=== PATIENT | male | born 1950 | race African-American/Black ===

== ENCOUNTER 2020-09-21 09:33 | Inpatient (IN) | payer MEDICARE, OTHER ==
[~2020-09-21] VITALS: Ht 177.8 cm; Wt 89.8 kg
[2020-09-21 12:04] LABS: HEMATOCRIT. 49.1 % (42.0-52.0); HEMOGLOBIN. 15.9 g/dL (14.0-18.0); MEAN CORPUSCULAR HEMOGLOBIN 27.9 pg (28.0-32.0); MEAN CORPUSCULAR VOLUME 86.1 fL (80.0-94.0); MEAN PLATELET VOLUME 9.1 fl (7.4-10.4); PLATELET 218 x1000/uL (130-400); RED CELL DISTRIBUTION WIDTH 14.8 % (11.6-14.6)
[2020-09-21 12:10] LABS: CHLORIDE 106 mEq/L (98-107)
[2020-09-21 12:11] LABS: INR 1.1; PROTHROMBIN TIME 11.4 sec (9.6-11.0)
[2020-09-21 12:54] LABS: PLATELET ESTIMATE NORMAL
[2020-09-21] MEDS ORDERED: SODIUM CHLORIDE 0.9% 1,000 ML IV ONE (13:00)
[2020-09-21] MEDS ORDERED: PIPERACILLIN/TAZOBACTAM 3.375GM/50ML PREMIX IV NR (13:45)
[2020-09-21] MEDS ORDERED: GUAIFENESIN 200MG/10ML SUGAR FREE UDC PO PRN (14:15)
[2020-09-21] MEDS ORDERED: IPRATROPIUM/ALBUTEROL 0.5-3(2.5)MG/3ML NEB NEB PRN (14:15)
[2020-09-21] MEDS ORDERED: ONDANSETRON HCL 4MG/2ML INJ IV PRN (14:15)
[2020-09-21] MEDS ORDERED: ACETAMINOPHEN 650MG SUPP PR PRN (14:15)
[2020-09-21] MEDS ORDERED: DOCUSATE SODIUM 100MG CAPSULE PO PRN (14:15)
[2020-09-21] MEDS ORDERED: LORAZEPAM 2MG/ML CPJ IV PRN (14:15)
[2020-09-21] MEDS ORDERED: HYDRALAZINE 20MG/ML VIAL IV PRN (14:15)
[2020-09-21] MEDS ORDERED: MORPHINE SULFATE 2 MG/ML CPJ (NOT FOR IM USE) IV PRN (14:15)
[2020-09-21] MEDS ORDERED: NITROGLYCERIN 0.4MG TABLET SL SL PRN (14:15)
[2020-09-21] MEDS ORDERED: IOHEXOL-300 100 ML BOTTLE ONE (14:48)
[2020-09-21 15:00] LABS: TOTAL IRON BINDING CAPACITY 319 ug/dL (250-450)
[2020-09-21 15:23] VITALS: BP 145/92
[2020-09-21 15:27] VITALS: BP 150/72
[2020-09-21 15:28] LABS: FOLIC ACID (FOLATE) SERUM 16.2 ng/mL (>5.38)
[2020-09-21] MEDS ORDERED: DONE10TA36 MT (16:13)
[2020-09-21] MEDS ORDERED: ATOR40TA70 MT (16:13)
[2020-09-21] MEDS ORDERED: TOPUD MT (16:13)
[2020-09-21] MEDS ORDERED: APIX2.5T MT (16:13)
[2020-09-21] MEDS: ENOXAPARIN 40MG/0.4ML SYR SUBCUT SCH (17:08)
[2020-09-21] MEDS: DEXT 5%/LACTATED RINGERS 1,000 ML IV SCH (17:09)
[2020-09-21 20:00] VITALS: BP 132/83
[2020-09-22 00:07] VITALS: BP 133/82
[2020-09-22] MEDS ORDERED: PIPERACILLIN/TAZ 3.375G PREMIX 50 ML IV SCH (02:00)
[2020-09-22 04:00] VITALS: BP 147/93
[2020-09-22] MEDS: PIPERACILLIN/TAZOBACTAM 3.375 G in DEXT 5% WATER 100 ML IV SCH ×3 (04:30→20:25)
[2020-09-22 08:00] VITALS: BP 135/81
[2020-09-22 08:26] LABS: HEMATOCRIT. 49.4 % (42.0-52.0); HEMOGLOBIN. 16.4 g/dL (14.0-18.0); MEAN CORPUSCULAR HEMOGLOBIN 28.5 pg (28.0-32.0); MEAN CORPUSCULAR VOLUME 85.7 fL (80.0-94.0); MEAN PLATELET VOLUME 9.7 fl (7.4-10.4); PLATELET 211 x1000/uL (130-400); RED BLOOD CELL COUNT 5.77 mill/uL (4.7-6.1); RED CELL DISTRIBUTION WIDTH 14.9 % (11.6-14.6)
[2020-09-22 08:41] LABS: CHLORIDE 105 mEq/L (98-107)
[2020-09-22 08:47] LABS: PHOSPHORUS 4.3 mg/dL (2.5-4.9)
[2020-09-22 08:49] LABS: CREATINE KINASE 193 IU/L (39-308)
[2020-09-22 08:52] LABS: CREATINE KINASE MB FRACTION 1.2 ng/mL (0.5-3.6)
[2020-09-22] MEDS: LORAZEPAM 2MG/ML CPJ IV PRN (08:55)
[2020-09-22] MEDS: PANTOPRAZOLE SODIUM 40 MG/VIAL IV SCH (08:55)
[2020-09-22] MEDS ORDERED: ONDANSETRON HCL 4MG/2ML INJ IV PRN ×2 (10:30→13:30)
[2020-09-22] MEDS ORDERED: SKIN ADHESIVE 0.7 GM EA TOP ONE (10:35)
[2020-09-22] MEDS ORDERED: BUPIVACAINE HCL 0.5% (5MG/ML) 50ML ONE (10:35)
[2020-09-22] MEDS ORDERED: BACITRACIN 50,000 UNITS/VIAL ONE (10:36)
[2020-09-22] MEDS ORDERED: HYDROMORPHONE HCL/PF 2MG/ML (OR) ONE (12:32)
[2020-09-22] MEDS ORDERED: PROPOFOL 200MG/20ML VIAL IV ONE (12:32)
[2020-09-22] MEDS ORDERED: ROCURONIUM BROMIDE 10MG/ML VIAL 5ML IV ONE (12:32)
[2020-09-22] MEDS ORDERED: DEXAMETHASONE 4MG/ML 1ML VIAL ONE (12:38)
[2020-09-22] MEDS ORDERED: PHENYLEPHRINE HCL 10 MG/ML 1ML (IV VIAL) IV ONE (12:38)
[2020-09-22] MEDS ORDERED: ONDANSETRON HCL 4MG/2ML INJ ONE (12:39)
[2020-09-22] MEDS ORDERED: VECURONIUM BROMIDE 10 MG/VIAL IV ONE (12:39)
[2020-09-22] MEDS ORDERED: CEFAZOLIN SODIUM 1000MG/VIAL ONE (12:39)
[2020-09-22] MEDS ORDERED: GLYCOPYRROLATE 0.2 MG/ML 2ML VIAL ONE (12:40)
[2020-09-22] MEDS ORDERED: NEOSTIGMINE METHYLSULFATE 1MG/ML 10 ML VIAL ONE (12:40)
[2020-09-22] MEDS ORDERED: HYDROMORPHONE HCL/PF 2MG/ML CPJ IV PRN (13:30)
[2020-09-22] MEDS: DEXT 5%/LACTATED RINGERS 1,000 ML IV SCH (14:15)
[2020-09-22 14:17] LABS: PLATELET ESTIMATE NORMAL
[2020-09-22] MEDS: ENOXAPARIN 40MG/0.4ML SYR SUBCUT SCH (14:53)
[2020-09-22 15:44] VITALS: BP 136/70
[2020-09-22 16:00] VITALS: BP 131/79
[2020-09-22] MEDS: DEXT 5%/0.45% NACL KCL 20MEQ/L 1,000 ML IV SCH ×2 (16:38→21:55)
[2020-09-22] MEDS: MORPHINE SULFATE 2 MG/ML CPJ (NOT FOR IM USE) IV PRN (17:29)
[2020-09-22] MEDS ORDERED: METOPROLOL TARTRATE 5MG/5ML VIAL IV PRN (18:45)
[2020-09-22] MEDS ORDERED: SODIUM CHLORIDE 0.45% 250 ML IV NR (18:45)
[2020-09-22 20:00] VITALS: BP 115/69
[2020-09-23] MEDS: PIPERACILLIN/TAZOBACTAM 3.375 G in DEXT 5% WATER 100 ML IV SCH ×3 (03:14→21:35)
[2020-09-23 05:15] VITALS: BP 126/68
[2020-09-23 09:10] VITALS: BP 120/65
[2020-09-23 09:10] LABS: CHLORIDE 111 mEq/L (98-107)
[2020-09-23 09:15] VITALS: BP 120/65
[2020-09-23] MEDS: PANTOPRAZOLE SODIUM 40 MG/VIAL IV SCH (09:37)
[2020-09-23] MEDS: ACETAMINOPHEN 650MG SUPP PR PRN ×2 (09:37→13:59)
[2020-09-23] MEDS: DEXT 5%/0.45% NACL KCL 20MEQ/L 1,000 ML IV SCH ×2 (09:38→18:28)
[2020-09-23 12:00] VITALS: BP 114/66
[2020-09-23] MEDS: ENOXAPARIN 40MG/0.4ML SYR SUBCUT SCH (15:51)
[2020-09-23 16:00] VITALS: BP 106/60
[2020-09-23 20:00] VITALS: BP 105/46
[2020-09-24] VITALS: BP 116/59
[2020-09-24] MEDS: DEXT 5%/0.45% NACL KCL 20MEQ/L 1,000 ML IV SCH ×2 (01:58→14:34)
[2020-09-24 04:00] VITALS: BP 103/55
[2020-09-24] MEDS: PIPERACILLIN/TAZOBACTAM 3.375 G in DEXT 5% WATER 100 ML IV SCH ×3 (04:25→20:27)
[2020-09-24 08:00] VITALS: BP 110/57
[2020-09-24] MEDS: FAMOTIDINE 20MG/2ML VIAL IV SCH ×2 (09:30→20:30)
[2020-09-24 12:00] VITALS: BP 123/57
[2020-09-24] MEDS: ENOXAPARIN 40MG/0.4ML SYR SUBCUT SCH (14:34)
[2020-09-24 16:00] VITALS: BP 122/71
[2020-09-24] MEDS: MORPHINE SULFATE 2 MG/ML CPJ (NOT FOR IM USE) IV PRN (18:40)
[2020-09-24 20:00] VITALS: BP 140/74
[2020-09-24] MEDS: FINASTERIDE 5MG TABLET PO SCH (20:27)
[2020-09-24] MEDS: TAMSULOSIN HCL 0.4MG SR CAPSULE PO SCH (20:30)
[2020-09-24] MEDS: LORAZEPAM 2MG/ML CPJ IV PRN (20:50)
[2020-09-25] VITALS: BP 118/35
[2020-09-25] MEDS: DEXT 5%/0.45% NACL KCL 20MEQ/L 1,000 ML IV SCH ×2 (04:32→11:15)
[2020-09-25] MEDS: PIPERACILLIN/TAZOBACTAM 3.375 G in DEXT 5% WATER 100 ML IV SCH ×3 (04:32→20:37)
[2020-09-25 08:00] VITALS: BP 130/64
[2020-09-25] MEDS: FAMOTIDINE 20MG/2ML VIAL IV SCH ×2 (09:00→20:38)
[2020-09-25 12:30] VITALS: BP 133/64
[2020-09-25 16:00] VITALS: BP 107/107
[2020-09-25] MEDS: ENOXAPARIN 40MG/0.4ML SYR SUBCUT SCH (16:15)
[2020-09-25 20:00] VITALS: BP 129/69
[2020-09-25] MEDS: TAMSULOSIN HCL 0.4MG SR CAPSULE PO SCH (20:38)
[2020-09-25] MEDS: FINASTERIDE 5MG TABLET PO SCH (20:40)
[2020-09-26] VITALS: BP 133/72
[2020-09-26] MEDS: DEXT 5%/0.45% NACL KCL 20MEQ/L 1,000 ML IV SCH ×3 (01:33→16:42)
[2020-09-26 04:00] VITALS: BP 125/67
[2020-09-26] MEDS: PIPERACILLIN/TAZOBACTAM 3.375 G in DEXT 5% WATER 100 ML IV SCH ×3 (04:27→20:06)
[2020-09-26 08:00] VITALS: BP 134/74
[2020-09-26] MEDS: FAMOTIDINE 20MG/2ML VIAL IV SCH ×2 (09:33→20:06)
[2020-09-26 12:00] VITALS: BP 135/74
[2020-09-26 16:00] VITALS: BP 152/74
[2020-09-26] MEDS: ENOXAPARIN 40MG/0.4ML SYR SUBCUT SCH (16:28)
[2020-09-26 20:00] VITALS: BP 136/68
[2020-09-26] MEDS: TAMSULOSIN HCL 0.4MG SR CAPSULE PO SCH (20:06)
[2020-09-26] MEDS: FINASTERIDE 5MG TABLET PO SCH (20:06)
[2020-09-27] VITALS: BP 152/72
[2020-09-27 04:00] VITALS: BP 128/55
[2020-09-27] MEDS: PIPERACILLIN/TAZOBACTAM 3.375 G in DEXT 5% WATER 100 ML IV SCH (04:07)
[2020-09-27] MEDS: DEXT 5%/0.45% NACL KCL 20MEQ/L 1,000 ML IV SCH ×3 (04:08→21:30)
[2020-09-27 08:00] VITALS: BP 118/69
[2020-09-27] MEDS: FAMOTIDINE 20MG/2ML VIAL IV SCH ×2 (08:23→21:26)
[2020-09-27 12:00] VITALS: BP 146/80
[2020-09-27] MEDS: ENOXAPARIN 40MG/0.4ML SYR SUBCUT SCH (14:01)
[2020-09-27 16:00] VITALS: BP 143/72
[2020-09-27 20:00] VITALS: BP 143/77
[2020-09-27] MEDS: TAMSULOSIN HCL 0.4MG SR CAPSULE PO SCH (21:00)
[2020-09-27] MEDS: FINASTERIDE 5MG TABLET PO SCH (21:00)
[2020-09-28] VITALS: BP 148/86
[2020-09-28 08:00] VITALS: BP 133/62
[2020-09-28] MEDS: FAMOTIDINE 20MG/2ML VIAL IV SCH ×2 (09:49→22:31)
[2020-09-28] MEDS: DEXT 5%/0.45% NACL KCL 20MEQ/L 1,000 ML IV SCH ×2 (09:49→17:44)
[2020-09-28] MEDS ORDERED: MORPHINE SULFATE 2 MG/ML CPJ (NOT FOR IM USE) IV PRN (10:30)
[2020-09-28] MEDS ORDERED: TRAMADOL 50MG TABLET PO PRN (10:30)
[2020-09-28 12:00] VITALS: BP 119/65
[2020-09-28] MEDS: ENOXAPARIN 40MG/0.4ML SYR SUBCUT SCH (15:06)
[2020-09-28 16:00] VITALS: BP 124/73
[2020-09-28 20:00] VITALS: BP 123/74
[2020-09-28] MEDS: TAMSULOSIN HCL 0.4MG SR CAPSULE PO SCH (22:31)
[2020-09-28] MEDS: FINASTERIDE 5MG TABLET PO SCH (22:31)
[2020-09-29] VITALS: BP 135/69
[2020-09-29 04:00] VITALS: BP 134/73
[2020-09-29] MEDS: DEXT 5%/0.45% NACL KCL 20MEQ/L 1,000 ML IV SCH ×2 (05:48→16:55)
[2020-09-29] MEDS: FAMOTIDINE 20MG/2ML VIAL IV SCH ×2 (10:05→22:38)
[2020-09-29 11:07] LABS: BASOPHILS % 0.3 % (0.0-2.0); EOSINOPHILS % 1.2 % (0.0-5.0); HEMATOCRIT. 37.4 % (42.0-52.0); HEMOGLOBIN. 12.4 g/dL (14.0-18.0); LYMPHOCYTES % 15.3 % (20.0-50.0); MEAN CORPUSCULAR HEMOGLOBIN 28.3 pg (28.0-32.0); MEAN CORPUSCULAR VOLUME 85.4 fL (80.0-94.0); MEAN PLATELET VOLUME 9.1 fl (7.4-10.4); MONOCYTES % 8.6 % (2.0-8.0); NEUTROPHILS % 74.6 % (40.0-76.0); PLATELET 207 x1000/uL (130-400); RED BLOOD CELL COUNT 4.38 mill/uL (4.7-6.1); RED CELL DISTRIBUTION WIDTH 14.4 % (11.6-14.6)
[2020-09-29 12:00] VITALS: BP 125/70
[2020-09-29 12:26] LABS: CHLORIDE 108 mEq/L (98-107)
[2020-09-29 16:00] VITALS: BP 117/93
[2020-09-29] MEDS: ENOXAPARIN 40MG/0.4ML SYR SUBCUT SCH (16:52)
[2020-09-29] MEDS: CYANOCOBALAMIN 1000MCG/ML VIAL IM SCH (17:13)
[2020-09-29 20:00] VITALS: BP 127/73
[2020-09-29] MEDS: FINASTERIDE 5MG TABLET PO SCH (22:38)
[2020-09-29] MEDS: TAMSULOSIN HCL 0.4MG SR CAPSULE PO SCH (22:38)
[2020-09-30] VITALS: BP 133/73
[2020-09-30 04:00] VITALS: BP 133/78
[2020-09-30] MEDS: DEXT 5%/0.45% NACL KCL 20MEQ/L 1,000 ML IV SCH ×3 (04:29→20:30)
[2020-09-30 08:00] VITALS: BP 143/80
[2020-09-30] MEDS: FAMOTIDINE 20MG/2ML VIAL IV SCH ×2 (08:55→21:00)
[2020-09-30] MEDS: CYANOCOBALAMIN 1000MCG/ML VIAL IM SCH (08:59)
[2020-09-30 12:00] VITALS: BP 135/77
[2020-09-30] MEDS: ENOXAPARIN 40MG/0.4ML SYR SUBCUT SCH (14:26)
[2020-09-30] MEDS: LACTULOSE 20G/30ML UDC PO SCH ×2 (14:26→21:43)
[2020-09-30 16:00] VITALS: BP 129/70
[2020-09-30 20:00] VITALS: BP 145/83
[2020-09-30] MEDS: TAMSULOSIN HCL 0.4MG SR CAPSULE PO SCH (21:43)
[2020-09-30] MEDS: FINASTERIDE 5MG TABLET PO SCH (21:43)
[2020-10-01] VITALS: BP 139/68
[2020-10-01 04:00] VITALS: BP 138/81
[2020-10-01] MEDS: LACTULOSE 20G/30ML UDC PO SCH (05:31)
[2020-10-01] MEDS: DEXT 5%/0.45% NACL KCL 20MEQ/L 1,000 ML IV SCH ×2 (06:11→16:30)
[2020-10-01 08:00] VITALS: BP 131/72
[2020-10-01] MEDS: CYANOCOBALAMIN 1000MCG/ML VIAL IM SCH (08:51)
[2020-10-01] MEDS: FAMOTIDINE 20MG/2ML VIAL IV SCH ×2 (09:09→21:55)
[2020-10-01 12:00] VITALS: BP 127/85
[2020-10-01 16:00] VITALS: BP 135/70
[2020-10-01] MEDS: ENOXAPARIN 40MG/0.4ML SYR SUBCUT SCH (17:38)
[2020-10-01 20:00] VITALS: BP 136/76
[2020-10-01] MEDS: TAMSULOSIN HCL 0.4MG SR CAPSULE PO SCH (21:55)
[2020-10-01] MEDS: FINASTERIDE 5MG TABLET PO SCH (21:55)
[2020-10-02] VITALS: BP 123/73
[2020-10-02] MEDS: DEXT 5%/0.45% NACL KCL 20MEQ/L 1,000 ML IV SCH ×2 (02:25→14:34)
[2020-10-02 04:00] VITALS: BP 137/75
[2020-10-02 07:10] LABS: T4 FREE 1.62 ng/dL (0.76-1.46)
[2020-10-02 07:53] LABS: VITAMIN B12 SERUM > 2000.0 pg/mL (211-911)
[2020-10-02] MEDS: FAMOTIDINE 20MG/2ML VIAL IV SCH ×2 (09:12→21:30)
[2020-10-02] MEDS: CYANOCOBALAMIN 1000MCG/ML VIAL IM SCH (09:12)
[2020-10-02] MEDS: ENOXAPARIN 40MG/0.4ML SYR SUBCUT SCH (17:22)
[2020-10-02 20:00] VITALS: BP 151/84
[2020-10-02] MEDS: TAMSULOSIN HCL 0.4MG SR CAPSULE PO SCH (21:30)
[2020-10-02] MEDS: FINASTERIDE 5MG TABLET PO SCH (21:30)
[2020-10-03] VITALS: BP 110/65
[2020-10-03] MEDS: DEXT 5%/0.45% NACL KCL 20MEQ/L 1,000 ML IV SCH ×3 (03:21→18:30)
[2020-10-03 04:00] VITALS: BP 153/77
[2020-10-03] MEDS: FAMOTIDINE 20MG/2ML VIAL IV SCH ×2 (09:21→21:00)
[2020-10-03] MEDS: CYANOCOBALAMIN 1000MCG/ML VIAL IM SCH (09:21)
[2020-10-03] MEDS: ENOXAPARIN 40MG/0.4ML SYR SUBCUT SCH (16:16)
[2020-10-03 20:00] VITALS: BP 136/76
[2020-10-03] MEDS: FINASTERIDE 5MG TABLET PO SCH (20:55)
[2020-10-03] MEDS: TAMSULOSIN HCL 0.4MG SR CAPSULE PO SCH (20:55)
[2020-10-04] VITALS: BP 145/72
[2020-10-04] MEDS: DEXT 5%/0.45% NACL KCL 20MEQ/L 1,000 ML IV SCH ×2 (03:11→17:20)
[2020-10-04 04:00] VITALS: BP 150/74
[2020-10-04 08:00] VITALS: BP 139/76
[2020-10-04] MEDS: CYANOCOBALAMIN 1000MCG/ML VIAL IM SCH ×2 (09:00→09:57)
[2020-10-04] MEDS: FAMOTIDINE 20MG/2ML VIAL IV SCH ×3 (09:00→20:06)
[2020-10-04 12:00] VITALS: BP 130/80
[2020-10-04 16:00] VITALS: BP 154/71
[2020-10-04] MEDS: ENOXAPARIN 40MG/0.4ML SYR SUBCUT SCH (17:22)
[2020-10-04 20:00] VITALS: BP 119/80
[2020-10-04] MEDS: FINASTERIDE 5MG TABLET PO SCH (20:06)
[2020-10-04] MEDS: TAMSULOSIN HCL 0.4MG SR CAPSULE PO SCH (20:07)
[2020-10-05] VITALS: BP 119/80
[2020-10-05] MEDS: DEXT 5%/0.45% NACL KCL 20MEQ/L 1,000 ML IV SCH ×3 (01:31→20:04)
[2020-10-05 04:00] VITALS: BP 137/75
[2020-10-05] MEDS: CYANOCOBALAMIN 1000MCG/ML VIAL IM SCH (09:26)
[2020-10-05] MEDS: FAMOTIDINE 20MG/2ML VIAL IV SCH ×2 (09:26→20:04)
[2020-10-05 10:30] VITALS: BP 125/69
[2020-10-05 12:00] VITALS: BP 126/66
[2020-10-05] MEDS: ENOXAPARIN 40MG/0.4ML SYR SUBCUT SCH (15:26)
[2020-10-05 16:00] VITALS: BP 133/82
[2020-10-05 20:00] VITALS: BP 137/73
[2020-10-05] MEDS: FINASTERIDE 5MG TABLET PO SCH (20:03)
[2020-10-05] MEDS: TAMSULOSIN HCL 0.4MG SR CAPSULE PO SCH (20:04)
[2020-10-06] VITALS: BP 128/70
[2020-10-06 04:00] VITALS: BP 127/71
[2020-10-06] MEDS: DEXT 5%/0.45% NACL KCL 20MEQ/L 1,000 ML IV SCH ×2 (06:31→17:10)
[2020-10-06 08:00] VITALS: BP 129/62
[2020-10-06] MEDS: FAMOTIDINE 20MG/2ML VIAL IV SCH ×2 (08:25→20:35)
[2020-10-06 12:00] VITALS: BP 120/62
[2020-10-06] MEDS: ENOXAPARIN 40MG/0.4ML SYR SUBCUT SCH (14:37)
[2020-10-06 16:00] VITALS: BP 142/61
[2020-10-06 20:00] VITALS: BP_SYST 122; BP_SYST 141; BP_DIAS 71; BP_DIAS 74
[2020-10-06] MEDS: FINASTERIDE 5MG TABLET PO SCH (20:35)
[2020-10-06] MEDS: TAMSULOSIN HCL 0.4MG SR CAPSULE PO SCH (20:37)
[2020-10-07] VITALS: BP 122/71
[2020-10-07] MEDS: DEXT 5%/0.45% NACL KCL 20MEQ/L 1,000 ML IV SCH ×3 (01:12→21:59)
[2020-10-07 04:00] VITALS: BP 120/66
[2020-10-07 06:33] LABS: BASOPHILS % 0.5 % (0.0-2.0); EOSINOPHILS % 1.6 % (0.0-5.0); HEMATOCRIT. 32.4 % (42.0-52.0); HEMOGLOBIN. 11.1 g/dL (14.0-18.0); LYMPHOCYTES % 18.9 % (20.0-50.0); MEAN CORPUSCULAR HEMOGLOBIN 29.2 pg (28.0-32.0); MEAN PLATELET VOLUME 8.7 fl (7.4-10.4); MONOCYTES % 9.4 % (2.0-8.0); NEUTROPHILS % 69.6 % (40.0-76.0); PLATELET 297 x1000/uL (130-400); RED BLOOD CELL COUNT 3.81 mill/uL (4.7-6.1); RED CELL DISTRIBUTION WIDTH 14.6 % (11.6-14.6)
[2020-10-07 06:41] LABS: CHLORIDE 108 mEq/L (98-107)
[2020-10-07 08:00] VITALS: BP 120/65
[2020-10-07] MEDS: FAMOTIDINE 20MG/2ML VIAL IV SCH ×2 (08:03→20:56)
[2020-10-07 12:00] VITALS: BP 120/65
[2020-10-07] MEDS: ENOXAPARIN 40MG/0.4ML SYR SUBCUT SCH (14:40)
[2020-10-07 16:00] VITALS: BP 115/74
[2020-10-07 20:00] VITALS: BP 129/71
[2020-10-07] MEDS: FINASTERIDE 5MG TABLET PO SCH (20:56)
[2020-10-07] MEDS: TAMSULOSIN HCL 0.4MG SR CAPSULE PO SCH (20:56)
[2020-10-08] VITALS: BP 134/76
[2020-10-08 04:00] VITALS: BP 136/72
[2020-10-08 08:00] VITALS: BP 132/76
[2020-10-08 08:16] LABS: TOTAL IRON BINDING CAPACITY 184 ug/dL (250-450)
[2020-10-08] MEDS ORDERED: LIDOCAINE HCL 1% 20ML VIAL (Pyxis) INJ ONE (08:29)
[2020-10-08 09:41] LABS: VITAMIN B12 SERUM > 2000.0 pg/mL (211-911)
[2020-10-08] MEDS: FAMOTIDINE 20MG/2ML VIAL IV SCH ×2 (10:05→20:34)
[2020-10-08] MEDS: DEXT 5%/0.45% NACL KCL 20MEQ/L 1,000 ML IV SCH ×2 (10:06→18:16)
[2020-10-08 11:48] LABS: FERRITIN 277 ng/mL (22-322)
[2020-10-08] MEDS: ENOXAPARIN 40MG/0.4ML SYR SUBCUT SCH (15:52)
[2020-10-08 20:00] VITALS: BP 126/60
[2020-10-08] MEDS: FINASTERIDE 5MG TABLET PO SCH (20:32)
[2020-10-08] MEDS: TAMSULOSIN HCL 0.4MG SR CAPSULE PO SCH (20:33)
[2020-10-09] VITALS: BP 105/63
[2020-10-09] MEDS: DEXT 5%/0.45% NACL KCL 20MEQ/L 1,000 ML IV SCH ×2 (02:40→16:49)
[2020-10-09 04:00] VITALS: BP 134/73
[2020-10-09 08:00] VITALS: BP 136/76
[2020-10-09] MEDS: FAMOTIDINE 20MG/2ML VIAL IV SCH ×2 (08:25→21:05)
[2020-10-09] MEDS: FERROUS SULFATE 300MG/5ML UDC PO SCH (16:48)
[2020-10-09] MEDS: ENOXAPARIN 40MG/0.4ML SYR SUBCUT SCH (16:49)
[2020-10-09 20:00] VITALS: BP 130/76
[2020-10-09] MEDS: TAMSULOSIN HCL 0.4MG SR CAPSULE PO SCH (20:58)
[2020-10-09] MEDS: FINASTERIDE 5MG TABLET PO SCH (20:58)
[2020-10-10] VITALS: BP 131/74
[2020-10-10] MEDS: DEXT 5%/0.45% NACL KCL 20MEQ/L 1,000 ML IV SCH ×2 (01:48→11:34)
[2020-10-10 04:00] VITALS: BP 132/71
[2020-10-10] MEDS: FERROUS SULFATE 300MG/5ML UDC PO SCH ×3 (09:56→18:19)
[2020-10-10] MEDS: FAMOTIDINE 20MG/2ML VIAL IV SCH ×2 (09:56→21:18)
[2020-10-10 10:51] LABS: CHLORIDE 109 mEq/L (98-107)
[2020-10-10 10:57] LABS: PHOSPHORUS 3.3 mg/dL (2.5-4.9)
[2020-10-10 12:00] VITALS: BP 123/71
[2020-10-10 15:20] VITALS: BP 123/71
[2020-10-10 16:00] VITALS: BP 137/77
[2020-10-10] MEDS: BLOOD SUGAR DIAGNOSTIC STRIP TEST SCH (18:02)
[2020-10-10] MEDS: ENOXAPARIN 40MG/0.4ML SYR SUBCUT SCH (18:02)
[2020-10-10 20:00] VITALS: BP 144/83
[2020-10-10] MEDS: TAMSULOSIN HCL 0.4MG SR CAPSULE PO SCH (21:18)
[2020-10-10] MEDS: FAT EMULSIONS 500 ML IV SCH (21:18)
[2020-10-10] MEDS: FINASTERIDE 5MG TABLET PO SCH (21:18)
[2020-10-10] MEDS: TOTAL PARENTERAL NUTRITION 2,500 ML IV SCH (21:19)
[2020-10-11] VITALS (7 sets, daily range): BP systolic 125–160; BP diastolic 68–88
[2020-10-11] MEDS: BLOOD SUGAR DIAGNOSTIC STRIP TEST SCH ×4 (00:46→18:03)
[2020-10-11 07:20] LABS: CHLORIDE 108 mEq/L (98-107)
[2020-10-11 07:29] LABS: PHOSPHORUS 2.8 mg/dL (2.5-4.9)
[2020-10-11] MEDS: FAMOTIDINE 20MG/2ML VIAL IV SCH ×2 (09:52→21:21)
[2020-10-11] MEDS: FERROUS SULFATE 300MG/5ML UDC PO SCH ×3 (09:52→18:44)
[2020-10-11] MEDS: ENOXAPARIN 40MG/0.4ML SYR SUBCUT SCH (18:44)
[2020-10-11] MEDS: FINASTERIDE 5MG TABLET PO SCH (21:21)
[2020-10-11] MEDS: TAMSULOSIN HCL 0.4MG SR CAPSULE PO SCH (21:21)
[2020-10-11] MEDS: TOTAL PARENTERAL NUTRITION 2,500 ML IV SCH (22:04)
[2020-10-12] VITALS: BP 118/66
[2020-10-12] MEDS: BLOOD SUGAR DIAGNOSTIC STRIP TEST SCH ×4 (00:09→18:00)
[2020-10-12 04:00] VITALS: BP 119/77
[2020-10-12 07:42] LABS: CHLORIDE 106 mEq/L (98-107)
[2020-10-12 07:47] LABS: PHOSPHORUS 2.4 mg/dL (2.5-4.9)
[2020-10-12 08:00] VITALS: BP 117/73
[2020-10-12] MEDS: FERROUS SULFATE 300MG/5ML UDC PO SCH ×3 (09:18→16:50)
[2020-10-12] MEDS: FAMOTIDINE 20MG/2ML VIAL IV SCH ×2 (09:18→21:05)
[2020-10-12 12:00] VITALS: BP 112/68
[2020-10-12 16:00] VITALS: BP 110/72
[2020-10-12] MEDS: ENOXAPARIN 40MG/0.4ML SYR SUBCUT SCH (16:50)
[2020-10-12 20:00] VITALS: BP 136/63
[2020-10-12] MEDS: TAMSULOSIN HCL 0.4MG SR CAPSULE PO SCH (21:04)
[2020-10-12] MEDS: FINASTERIDE 5MG TABLET PO SCH (21:04)
[2020-10-12] MEDS: TOTAL PARENTERAL NUTRITION 2,500 ML IV SCH (21:06)
[2020-10-13] VITALS: BP 128/60
[2020-10-13 04:00] VITALS: BP 126/72
[2020-10-13] MEDS: BLOOD SUGAR DIAGNOSTIC STRIP TEST SCH ×4 (06:00→18:03)
[2020-10-13] MEDS: FERROUS SULFATE 300MG/5ML UDC PO SCH ×3 (07:40→17:57)
[2020-10-13 08:00] VITALS: BP 113/77
[2020-10-13] MEDS: FAMOTIDINE 20MG/2ML VIAL IV SCH ×2 (08:50→21:57)
[2020-10-13] MEDS ORDERED: DIATR MEGLU/DIATRIZOATE SOLN 30ML ONE (10:47)
[2020-10-13 12:00] VITALS: BP 125/71
[2020-10-13 13:22] LABS: BASOPHILS % 0.6 % (0.0-2.0); HEMATOCRIT. 39.9 % (42.0-52.0); HEMOGLOBIN. 12.9 g/dL (14.0-18.0); LYMPHOCYTES % 21.1 % (20.0-50.0); MEAN CORPUSCULAR HEMOGLOBIN 27.6 pg (28.0-32.0); MEAN CORPUSCULAR VOLUME 85.5 fL (80.0-94.0); MONOCYTES % 11.9 % (2.0-8.0); NEUTROPHILS % 64.4 % (40.0-76.0); PLATELET 263 x1000/uL (130-400); RED BLOOD CELL COUNT 4.67 mill/uL (4.7-6.1); RED CELL DISTRIBUTION WIDTH 14.7 % (11.6-14.6)
[2020-10-13 13:40] LABS: CHLORIDE 107 mEq/L (98-107)
[2020-10-13 16:00] VITALS: BP 128/71
[2020-10-13] MEDS: ENOXAPARIN 40MG/0.4ML SYR SUBCUT SCH (16:21)
[2020-10-13 20:00] VITALS: BP 139/77
[2020-10-13] MEDS: TOTAL PARENTERAL NUTRITION 2,500 ML IV SCH (21:52)
[2020-10-13] MEDS: FAT EMULSIONS 500 ML IV SCH (21:52)
[2020-10-13] MEDS: TAMSULOSIN HCL 0.4MG SR CAPSULE PO SCH (21:54)
[2020-10-13] MEDS: FINASTERIDE 5MG TABLET PO SCH (22:01)
[2020-10-14] VITALS: BP 135/66
[2020-10-14] MEDS: BLOOD SUGAR DIAGNOSTIC STRIP TEST SCH ×3 (00:03→12:00)
[2020-10-14 04:00] VITALS: BP 132/76
[2020-10-14 07:54] LABS: CHLORIDE 103 mEq/L (98-107)
[2020-10-14 07:59] LABS: PHOSPHORUS 1.6 mg/dL (2.5-4.9)
[2020-10-14] MEDS: FERROUS SULFATE 300MG/5ML UDC PO SCH ×3 (08:49→18:15)
[2020-10-14] MEDS: FAMOTIDINE 20MG/2ML VIAL IV SCH ×2 (08:49→21:54)
[2020-10-14] MEDS ORDERED: DIATR MEGLU/DIATRIZOATE SOLN 120ML ONE (09:07)
[2020-10-14 12:00] VITALS: BP 154/58
[2020-10-14] MEDS ORDERED: SODIUM PHOS,M-BASIC-D-BASIC 30 MM in SODIUM CHLORIDE 0.9% 500 ML IV NR (14:00)
[2020-10-14] MEDS ORDERED: SODIUM PHOS,M-BASIC-D-BASIC 30 MM in DEXT 5% WATER 500 ML IV NR (14:00)
[2020-10-14] MEDS: ENOXAPARIN 40MG/0.4ML SYR SUBCUT SCH (15:06)
[2020-10-14 16:00] VITALS: BP_SYST 123; BP_SYST 84; BP_DIAS 56; BP_DIAS 57
[2020-10-14 20:00] VITALS: BP 130/79
[2020-10-14] MEDS: TOTAL PARENTERAL NUTRITION 2,500 ML IV SCH (21:53)
[2020-10-14] MEDS: TAMSULOSIN HCL 0.4MG SR CAPSULE PO SCH (21:53)
[2020-10-14] MEDS: FINASTERIDE 5MG TABLET PO SCH (21:53)
[2020-10-15] VITALS: BP 126/78
[2020-10-15 04:00] VITALS: BP 144/76
[2020-10-15 07:20] LABS: CHLORIDE 111 mEq/L (98-107)
[2020-10-15] MEDS: FERROUS SULFATE 300MG/5ML UDC PO SCH ×4 (07:40→17:40)
[2020-10-15 07:42] LABS: PHOSPHORUS 2.4 mg/dL (2.5-4.9)
[2020-10-15 08:00] VITALS: BP 146/74
[2020-10-15] MEDS ORDERED: LIDOCAINE HCL 1% 20ML VIAL (Pyxis) INJ ONE (08:54)
[2020-10-15] MEDS: BLOOD SUGAR DIAGNOSTIC STRIP TEST SCH (09:00)
[2020-10-15] MEDS: FAMOTIDINE 20MG/2ML VIAL IV SCH ×2 (10:13→20:42)
[2020-10-15 12:00] VITALS: BP 129/69
[2020-10-15] MEDS: ENOXAPARIN 40MG/0.4ML SYR SUBCUT SCH (15:31)
[2020-10-15 16:00] VITALS: BP 124/76
[2020-10-15 20:00] VITALS: BP 126/69
[2020-10-15] MEDS: TOTAL PARENTERAL NUTRITION 1,700 ML IV SCH (20:41)
[2020-10-15] MEDS: TAMSULOSIN HCL 0.4MG SR CAPSULE PO SCH (20:42)
[2020-10-15] MEDS: FINASTERIDE 5MG TABLET PO SCH (20:42)
[2020-10-16] VITALS: BP 130/80
[2020-10-16 04:00] VITALS: BP 128/76
[2020-10-16] MEDS: FERROUS SULFATE 300MG/5ML UDC PO SCH ×3 (08:10→18:08)
[2020-10-16 08:15] VITALS: BP 131/73
[2020-10-16] MEDS: FAMOTIDINE 20MG/2ML VIAL IV SCH ×2 (09:37→21:08)
[2020-10-16] MEDS: BLOOD SUGAR DIAGNOSTIC STRIP TEST SCH (09:37)
[2020-10-16 12:00] VITALS: BP 145/66
[2020-10-16] MEDS: ENOXAPARIN 40MG/0.4ML SYR SUBCUT SCH (15:06)
[2020-10-16 16:27] VITALS: BP 137/86
[2020-10-16 20:00] VITALS: BP 121/56
[2020-10-16] MEDS: TOTAL PARENTERAL NUTRITION 1,700 ML IV SCH (21:09)
[2020-10-16] MEDS: FINASTERIDE 5MG TABLET PO SCH (21:10)
[2020-10-16] MEDS: TAMSULOSIN HCL 0.4MG SR CAPSULE PO SCH (21:10)
[2020-10-17] VITALS: BP 138/77
[2020-10-17 04:00] VITALS: BP 147/69
[2020-10-17] MEDS: FERROUS SULFATE 300MG/5ML UDC PO SCH ×3 (06:40→17:22)
[2020-10-17 06:58] LABS: CHLORIDE 108 mEq/L (98-107)
[2020-10-17 07:07] LABS: PHOSPHORUS 2.5 mg/dL (2.5-4.9)
[2020-10-17 08:00] VITALS: BP 131/64
[2020-10-17] MEDS: BLOOD SUGAR DIAGNOSTIC STRIP TEST SCH (09:00)
[2020-10-17] MEDS: FAMOTIDINE 20MG/2ML VIAL IV SCH ×2 (10:21→20:22)
[2020-10-17 12:15] VITALS: BP 134/71
[2020-10-17] MEDS: ENOXAPARIN 40MG/0.4ML SYR SUBCUT SCH (15:37)
[2020-10-17 16:00] VITALS: BP 118/61
[2020-10-17 20:00] VITALS: BP 129/80
[2020-10-17] MEDS: FAT EMULSIONS 500 ML IV SCH (20:00)
[2020-10-17] MEDS: TOTAL PARENTERAL NUTRITION 1,700 ML IV SCH (20:19)
[2020-10-17] MEDS: FINASTERIDE 5MG TABLET PO SCH (20:21)
[2020-10-17] MEDS: TAMSULOSIN HCL 0.4MG SR CAPSULE PO SCH (20:21)
[2020-10-18] VITALS: BP 135/67
[2020-10-18 04:00] VITALS: BP 128/71
[2020-10-18] MEDS: FERROUS SULFATE 300MG/5ML UDC PO SCH ×3 (07:40→19:18)
[2020-10-18 08:00] VITALS: BP 113/62
[2020-10-18] MEDS: FAMOTIDINE 20MG/2ML VIAL IV SCH ×2 (08:33→21:15)
[2020-10-18] MEDS: BLOOD SUGAR DIAGNOSTIC STRIP TEST SCH ×2 (08:34→21:36)
[2020-10-18] MEDS: METOCLOPRAMIDE HCL 10MG/2ML VIAL IV SCH ×2 (11:43→19:18)
[2020-10-18 12:00] VITALS: BP 119/71
[2020-10-18] MEDS: ENOXAPARIN 40MG/0.4ML SYR SUBCUT SCH (15:00)
[2020-10-18 16:13] VITALS: BP 128/82
[2020-10-18 20:14] VITALS: BP 146/74
[2020-10-18] MEDS: TAMSULOSIN HCL 0.4MG SR CAPSULE PO SCH (21:15)
[2020-10-18] MEDS: FINASTERIDE 5MG TABLET PO SCH (21:16)
[2020-10-18] MEDS: TOTAL PARENTERAL NUTRITION 1,700 ML IV SCH (21:16)
[2020-10-19 00:11] VITALS: BP 148/86
[2020-10-19] MEDS: METOCLOPRAMIDE HCL 10MG/2ML VIAL IV SCH ×4 (02:19→18:40)
[2020-10-19 04:00] VITALS: BP 140/83
[2020-10-19 08:00] VITALS: BP 125/72
[2020-10-19] MEDS: FAMOTIDINE 20MG/2ML VIAL IV SCH ×2 (11:02→20:19)
[2020-10-19] MEDS: FERROUS SULFATE 300MG/5ML UDC PO SCH ×3 (11:02→18:40)
[2020-10-19 12:00] VITALS: BP 136/86
[2020-10-19] MEDS: ENOXAPARIN 40MG/0.4ML SYR SUBCUT SCH (15:31)
[2020-10-19 16:00] VITALS: BP 138/89
[2020-10-19] MEDS: FINASTERIDE 5MG TABLET PO SCH (20:18)
[2020-10-19] MEDS: TAMSULOSIN HCL 0.4MG SR CAPSULE PO SCH (20:19)
[2020-10-19] MEDS: TOTAL PARENTERAL NUTRITION 1,700 ML IV SCH (20:47)
[2020-10-20] MEDS: METOCLOPRAMIDE HCL 10MG/2ML VIAL IV SCH ×5 (00:51→23:57)
[2020-10-20] MEDS: FERROUS SULFATE 300MG/5ML UDC PO SCH ×3 (06:23→17:00)
[2020-10-20 08:00] VITALS: BP 151/83
[2020-10-20] MEDS: FAMOTIDINE 20MG/2ML VIAL IV SCH ×2 (08:25→21:10)
[2020-10-20] MEDS: BLOOD SUGAR DIAGNOSTIC STRIP TEST SCH (08:27)
[2020-10-20] MEDS ORDERED: DIATR MEGLU/DIATRIZOATE SOLN 120ML ONE (10:02)
[2020-10-20 12:00] VITALS: BP 140/81
[2020-10-20] MEDS: ENOXAPARIN 40MG/0.4ML SYR SUBCUT SCH (14:58)
[2020-10-20 16:00] VITALS: BP 139/80
[2020-10-20 20:00] VITALS: BP 151/87
[2020-10-20] MEDS: TOTAL PARENTERAL NUTRITION 1,700 ML IV SCH (20:10)
[2020-10-20] MEDS: FAT EMULSIONS 500 ML IV SCH (20:22)
[2020-10-20] MEDS: FINASTERIDE 5MG TABLET PO SCH (21:10)
[2020-10-20] MEDS: TAMSULOSIN HCL 0.4MG SR CAPSULE PO SCH (21:10)
[2020-10-21] VITALS: BP 133/79
[2020-10-21 04:00] VITALS: BP 137/83
[2020-10-21] MEDS: METOCLOPRAMIDE HCL 10MG/2ML VIAL IV SCH ×3 (05:24→17:59)
[2020-10-21] MEDS: FERROUS SULFATE 300MG/5ML UDC PO SCH ×3 (06:11→17:59)
[2020-10-21] MEDS: FAMOTIDINE 20MG/2ML VIAL IV SCH (08:40)
[2020-10-21] MEDS: BLOOD SUGAR DIAGNOSTIC STRIP TEST SCH (08:49)
[2020-10-21 12:15] LABS: CHLORIDE 104 mEq/L (98-107)
[2020-10-21 16:00] VITALS: BP 133/88
[2020-10-21] MEDS: ENOXAPARIN 40MG/0.4ML SYR SUBCUT SCH (17:59)
[2020-10-21 20:00] VITALS: BP 123/84
[2020-10-21] MEDS: FINASTERIDE 5MG TABLET PO SCH (21:38)
[2020-10-21] MEDS: TAMSULOSIN HCL 0.4MG SR CAPSULE PO SCH (21:39)
[2020-10-21] MEDS: TOTAL PARENTERAL NUTRITION 1,700 ML IV SCH (21:41)
[2020-10-22] MEDS: METOCLOPRAMIDE HCL 10MG/2ML VIAL IV SCH ×5 (00:50→23:49)
[2020-10-22] MEDS: FAMOTIDINE 20MG/2ML VIAL IV SCH ×2 (00:50→09:14)
[2020-10-22 04:00] VITALS: BP 125/67
[2020-10-22] MEDS: DUTASTERIDE 0.5MG CAPSULE PO SCH (09:14)
[2020-10-22] MEDS: FERROUS SULFATE 300MG/5ML UDC PO SCH ×3 (09:14→17:47)
[2020-10-22] MEDS: TAMSULOSIN HCL 0.4MG SR CAPSULE PO SCH ×3 (09:18→20:04)
[2020-10-22] MEDS: BLOOD SUGAR DIAGNOSTIC STRIP TEST SCH (09:18)
[2020-10-22 12:00] VITALS: BP 142/70
[2020-10-22] MEDS: ENOXAPARIN 40MG/0.4ML SYR SUBCUT SCH (15:26)
[2020-10-22 16:00] VITALS: BP 127/49
[2020-10-22 20:00] VITALS: BP 150/82
[2020-10-22] MEDS: FINASTERIDE 5MG TABLET PO SCH (20:03)
[2020-10-22] MEDS: TOTAL PARENTERAL NUTRITION 1,700 ML IV SCH (20:05)
[2020-10-23] VITALS: BP 148/80
[2020-10-23 04:00] VITALS: BP 145/72
[2020-10-23] MEDS: METOCLOPRAMIDE HCL 10MG/2ML VIAL IV SCH ×3 (05:39→18:01)
[2020-10-23] MEDS: DUTASTERIDE 0.5MG CAPSULE PO SCH (08:44)
[2020-10-23] MEDS: TAMSULOSIN HCL 0.4MG SR CAPSULE PO SCH ×2 (08:44→21:25)
[2020-10-23] MEDS: BLOOD SUGAR DIAGNOSTIC STRIP TEST SCH (08:45)
[2020-10-23] MEDS: FERROUS SULFATE 300MG/5ML UDC PO SCH ×3 (08:45→18:01)
[2020-10-23 16:00] VITALS: BP 118/64
[2020-10-23] MEDS: ENOXAPARIN 40MG/0.4ML SYR SUBCUT SCH (18:02)
[2020-10-23 20:00] VITALS: BP 126/75
[2020-10-23] MEDS: TOTAL PARENTERAL NUTRITION 1,700 ML IV SCH (21:24)
[2020-10-24] VITALS: BP 132/75
[2020-10-24] MEDS: METOCLOPRAMIDE HCL 10MG/2ML VIAL IV SCH ×5 (00:46→23:52)
[2020-10-24 04:00] VITALS: BP 130/71
[2020-10-24 08:00] VITALS: BP 130/80
[2020-10-24] MEDS: DUTASTERIDE 0.5MG CAPSULE PO SCH (08:29)
[2020-10-24] MEDS: FERROUS SULFATE 300MG/5ML UDC PO SCH ×3 (08:35→17:47)
[2020-10-24] MEDS: TAMSULOSIN HCL 0.4MG SR CAPSULE PO SCH ×2 (08:35→20:29)
[2020-10-24] MEDS: BLOOD SUGAR DIAGNOSTIC STRIP TEST SCH (08:36)
[2020-10-24 11:59] LABS: HEMATOCRIT 40.6 % (42.0-52.0); HEMOGLOBIN 12.7 g/dL (14.0-18.0); MEAN CORPUSCULAR HEMOGLOBIN 27.8 pg (28.0-32.0); MEAN CORPUSCULAR VOLUME 88.6 fL (80.0-94.0); PLATELET 100 x1000/uL (130-400); RED BLOOD CELL COUNT 4.59 mill/uL (4.7-6.1); RED CELL DISTRIBUTION WIDTH 15.2 % (11.6-14.6)
[2020-10-24 16:00] VITALS: BP 146/96
[2020-10-24] MEDS: ENOXAPARIN 40MG/0.4ML SYR SUBCUT SCH (16:27)
[2020-10-24 20:00] VITALS: BP 136/80
[2020-10-24] MEDS: FAT EMULSIONS 500 ML IV SCH (20:30)
[2020-10-24] MEDS: TOTAL PARENTERAL NUTRITION 1,700 ML IV SCH (20:31)
[2020-10-25] VITALS: BP 132/78
[2020-10-25 04:00] VITALS: BP 135/69
[2020-10-25] MEDS: METOCLOPRAMIDE HCL 10MG/2ML VIAL IV SCH ×3 (05:57→17:10)
[2020-10-25 08:00] VITALS: BP 125/74
[2020-10-25] MEDS: BLOOD SUGAR DIAGNOSTIC STRIP TEST SCH (09:00)
[2020-10-25] MEDS: FERROUS SULFATE 300MG/5ML UDC PO SCH ×4 (09:41→17:10)
[2020-10-25] MEDS: DUTASTERIDE 0.5MG CAPSULE PO SCH (09:42)
[2020-10-25] MEDS: TAMSULOSIN HCL 0.4MG SR CAPSULE PO SCH ×2 (09:42→21:34)
[2020-10-25 12:00] VITALS: BP 127/81
[2020-10-25 16:00] VITALS: BP 105/68
[2020-10-25] MEDS: ENOXAPARIN 40MG/0.4ML SYR SUBCUT SCH (17:11)
[2020-10-25 20:00] VITALS: BP 143/93
[2020-10-25] MEDS: TOTAL PARENTERAL NUTRITION 1,700 ML IV SCH (21:40)
[2020-10-26] VITALS: BP 124/77
[2020-10-26] MEDS: METOCLOPRAMIDE HCL 10MG/2ML VIAL IV SCH ×4 (00:03→17:38)
[2020-10-26 04:00] VITALS: BP 139/69
[2020-10-26 07:13] LABS: HEMATOCRIT. 37.7 % (42.0-52.0); HEMOGLOBIN. 12.5 g/dL (14.0-18.0); MEAN CORPUSCULAR HEMOGLOBIN 27.9 pg (28.0-32.0); MEAN CORPUSCULAR VOLUME 84.6 fL (80.0-94.0); PLATELET 238 x1000/uL (130-400); RED BLOOD CELL COUNT 4.46 mill/uL (4.7-6.1); RED CELL DISTRIBUTION WIDTH 14.6 % (11.6-14.6)
[2020-10-26 07:26] LABS: CHLORIDE 105 mEq/L (98-107)
[2020-10-26 08:00] VITALS: BP 122/66
[2020-10-26] MEDS: DUTASTERIDE 0.5MG CAPSULE PO SCH (08:41)
[2020-10-26] MEDS: FERROUS SULFATE 300MG/5ML UDC PO SCH ×3 (08:41→17:38)
[2020-10-26] MEDS: TAMSULOSIN HCL 0.4MG SR CAPSULE PO SCH ×2 (08:41→20:37)
[2020-10-26] MEDS: BLOOD SUGAR DIAGNOSTIC STRIP TEST SCH (09:00)
[2020-10-26 11:53] LABS: PLATELET ESTIMATE NORMAL
[2020-10-26 12:00] VITALS: BP 115/55
[2020-10-26] MEDS: ENOXAPARIN 40MG/0.4ML SYR SUBCUT SCH (14:20)
[2020-10-26 15:56] LABS: CHLORIDE 107 mEq/L (98-107)
[2020-10-26 16:00] VITALS: BP 169/89
[2020-10-26 20:00] VITALS: BP 128/70
[2020-10-26] MEDS: METOPROLOL TARTRATE 25MG TABLET PO SCH (20:38)
[2020-10-26] MEDS: TOTAL PARENTERAL NUTRITION 1,700 ML IV SCH (20:40)
[2020-10-27] VITALS: BP 123/72
[2020-10-27] MEDS: METOCLOPRAMIDE HCL 10MG/2ML VIAL IV SCH ×4 (00:16→17:49)
[2020-10-27 04:00] VITALS: BP 122/70
[2020-10-27 08:00] VITALS: BP 108/62
[2020-10-27] MEDS: METOPROLOL TARTRATE 25MG TABLET PO SCH ×2 (09:00→21:36)
[2020-10-27] MEDS: FERROUS SULFATE 300MG/5ML UDC PO SCH ×3 (09:06→17:49)
[2020-10-27] MEDS: DUTASTERIDE 0.5MG CAPSULE PO SCH (09:06)
[2020-10-27] MEDS: TAMSULOSIN HCL 0.4MG SR CAPSULE PO SCH ×2 (09:06→21:36)
[2020-10-27] MEDS: BLOOD SUGAR DIAGNOSTIC STRIP TEST SCH (09:07)
[2020-10-27 12:00] VITALS: BP 122/66
[2020-10-27] MEDS: ENOXAPARIN 40MG/0.4ML SYR SUBCUT SCH (15:58)
[2020-10-27 16:00] VITALS: BP 137/88
[2020-10-27 20:00] VITALS: BP 134/74
[2020-10-27] MEDS: FAT EMULSIONS 500 ML IV SCH (21:44)
[2020-10-27] MEDS: TOTAL PARENTERAL NUTRITION 1,700 ML IV SCH (21:45)
[2020-10-28] VITALS: BP 126/74
[2020-10-28] MEDS: METOCLOPRAMIDE HCL 10MG/2ML VIAL IV SCH ×5 (01:45→23:19)
[2020-10-28 04:00] VITALS: BP 130/75
[2020-10-28 08:00] VITALS: BP 116/72
[2020-10-28] MEDS: DUTASTERIDE 0.5MG CAPSULE PO SCH (08:09)
[2020-10-28] MEDS: TAMSULOSIN HCL 0.4MG SR CAPSULE PO SCH ×2 (08:09→21:11)
[2020-10-28] MEDS: FERROUS SULFATE 300MG/5ML UDC PO SCH ×3 (08:10→17:00)
[2020-10-28] MEDS: BLOOD SUGAR DIAGNOSTIC STRIP TEST SCH (08:10)
[2020-10-28] MEDS: METOPROLOL TARTRATE 25MG TABLET PO SCH ×2 (08:10→21:11)
[2020-10-28 12:00] VITALS: BP 112/68
[2020-10-28] MEDS: ENOXAPARIN 40MG/0.4ML SYR SUBCUT SCH (14:03)
[2020-10-28 16:00] VITALS: BP 130/72
[2020-10-28 20:00] VITALS: BP 116/68
[2020-10-28] MEDS: TOTAL PARENTERAL NUTRITION 1,700 ML IV SCH (23:19)
[2020-10-29] VITALS: BP 114/77
[2020-10-29 04:00] VITALS: BP 125/64
[2020-10-29] MEDS: METOCLOPRAMIDE HCL 10MG/2ML VIAL IV SCH ×4 (06:03→22:01)
[2020-10-29] MEDS: FERROUS SULFATE 300MG/5ML UDC PO SCH ×3 (09:04→17:50)
[2020-10-29] MEDS: DUTASTERIDE 0.5MG CAPSULE PO SCH (09:05)
[2020-10-29] MEDS: METOPROLOL TARTRATE 25MG TABLET PO SCH ×2 (09:05→21:53)
[2020-10-29] MEDS: TAMSULOSIN HCL 0.4MG SR CAPSULE PO SCH ×2 (09:06→21:54)
[2020-10-29] MEDS: BLOOD SUGAR DIAGNOSTIC STRIP TEST SCH (09:06)
[2020-10-29 12:00] VITALS: BP 132/62
[2020-10-29 16:00] VITALS: BP 129/64
[2020-10-29] MEDS: ENOXAPARIN 40MG/0.4ML SYR SUBCUT SCH (17:50)
[2020-10-30] VITALS: BP 126/64
[2020-10-30] MEDS: TOTAL PARENTERAL NUTRITION 1,700 ML IV SCH ×2 (00:37→21:16)
[2020-10-30 04:00] VITALS: BP 129/76
[2020-10-30] MEDS: METOCLOPRAMIDE HCL 10MG/2ML VIAL IV SCH ×3 (07:16→18:03)
[2020-10-30 08:00] VITALS: BP 125/74
[2020-10-30] MEDS: TAMSULOSIN HCL 0.4MG SR CAPSULE PO SCH ×2 (09:48→21:13)
[2020-10-30] MEDS: METOPROLOL TARTRATE 25MG TABLET PO SCH (09:48)
[2020-10-30] MEDS: FERROUS SULFATE 300MG/5ML UDC PO SCH ×3 (09:48→18:03)
[2020-10-30] MEDS: BLOOD SUGAR DIAGNOSTIC STRIP TEST SCH (09:49)
[2020-10-30] MEDS: DUTASTERIDE 0.5MG CAPSULE PO SCH (09:49)
[2020-10-30 12:00] VITALS: BP 121/79
[2020-10-30] MEDS ORDERED: SIMETHICONE 80MG TABLET CHEW PO PRN (14:00)
[2020-10-30] MEDS: ENOXAPARIN 40MG/0.4ML SYR SUBCUT SCH (15:01)
[2020-10-30 16:00] VITALS: BP 121/76
[2020-10-30 20:00] VITALS: BP 132/75
[2020-10-30] MEDS: METOPROLOL TARTRATE 50MG TABLET PO SCH (21:14)
[2020-10-31] VITALS: BP 137/72
[2020-10-31] MEDS: METOCLOPRAMIDE HCL 10MG/2ML VIAL IV SCH ×5 (00:58→23:34)
[2020-10-31 04:00] VITALS: BP 127/67
[2020-10-31 08:00] VITALS: BP 125/71
[2020-10-31] MEDS: DUTASTERIDE 0.5MG CAPSULE PO SCH (08:16)
[2020-10-31] MEDS: FERROUS SULFATE 300MG/5ML UDC PO SCH ×3 (08:16→17:06)
[2020-10-31] MEDS: BLOOD SUGAR DIAGNOSTIC STRIP TEST SCH ×2 (08:17→08:27)
[2020-10-31] MEDS: TAMSULOSIN HCL 0.4MG SR CAPSULE PO SCH ×2 (08:17→21:04)
[2020-10-31] MEDS: METOPROLOL TARTRATE 50MG TABLET PO SCH ×2 (08:17→21:04)
[2020-10-31 12:00] VITALS: BP 128/74
[2020-10-31] MEDS: ENOXAPARIN 40MG/0.4ML SYR SUBCUT SCH (14:51)
[2020-10-31] MEDS ORDERED: MEGESTROL ACETATE 400 MG/10 ML UDC PO SCH (15:00)
[2020-10-31] MEDS: MEGESTROL ACETATE 400 MG/10 ML UDC PO SCH (15:57)
[2020-10-31 16:00] VITALS: BP 132/67
[2020-10-31 20:00] VITALS: BP 137/75
[2020-10-31] MEDS: TOTAL PARENTERAL NUTRITION 1,700 ML IV SCH (21:05)
[2020-10-31] MEDS: FAT EMULSIONS 500 ML IV SCH (21:15)
[2020-11-01] VITALS: BP 142/81
[2020-11-01 04:00] VITALS: BP 138/76
[2020-11-01] MEDS: METOCLOPRAMIDE HCL 10MG/2ML VIAL IV SCH ×4 (05:10→23:19)
[2020-11-01 08:00] VITALS: BP 119/60
[2020-11-01] MEDS: DUTASTERIDE 0.5MG CAPSULE PO SCH (08:15)
[2020-11-01] MEDS: FERROUS SULFATE 300MG/5ML UDC PO SCH ×3 (08:15→17:17)
[2020-11-01] MEDS: MEGESTROL ACETATE 400 MG/10 ML UDC PO SCH (08:15)
[2020-11-01] MEDS: TAMSULOSIN HCL 0.4MG SR CAPSULE PO SCH ×2 (08:16→20:55)
[2020-11-01] MEDS: METOPROLOL TARTRATE 50MG TABLET PO SCH ×2 (08:16→20:56)
[2020-11-01] MEDS: BLOOD SUGAR DIAGNOSTIC STRIP TEST SCH (09:23)
[2020-11-01 10:29] LABS: CLARITY URINE CLOUDY (CLEAR); COLOR URINE YELLOW (YELLOW); KETONES URINE NEGATIVE (NEGATIVE); LEUKOCYTE ESTERASE URINE 3+ (NEGATIVE); NITRITE URINE NEGATIVE (NEGATIVE); OCCULT BLOOD URINE TRACE (NEGATIVE); PH URINE 8.5 (4.5-8.0); PROTEIN URINE 1+ (NEGATIVE); SPECIFIC GRAVITY URINE 1.021 (1.005-1.030)
[2020-11-01 11:10] LABS: CHLORIDE 106 mEq/L (98-107)
[2020-11-01 11:16] LABS: PHOSPHORUS 1.5 mg/dL (2.5-4.9)
[2020-11-01] MEDS: ENOXAPARIN 40MG/0.4ML SYR SUBCUT SCH (14:00)
[2020-11-01] MEDS ORDERED: POTASSIUM PHOS,M-BASIC-D-BASIC 30 MMOL in DEXT 5% WATER 500 ML IV SCH (15:00)
[2020-11-01 16:00] VITALS: BP 123/74
[2020-11-01 20:23] VITALS: BP 121/66
[2020-11-01] MEDS: TOTAL PARENTERAL NUTRITION 1,700 ML IV SCH (21:00)
[2020-11-02] VITALS: BP 119/64
[2020-11-02 04:00] VITALS: BP 122/66
[2020-11-02] MEDS: METOCLOPRAMIDE HCL 10MG/2ML VIAL IV SCH ×3 (05:46→17:17)
[2020-11-02] MEDS: TOTAL PARENTERAL NUTRITION 1,700 ML IV SCH ×2 (06:33→21:00)
[2020-11-02 08:00] VITALS: BP 98/73
[2020-11-02] MEDS: FERROUS SULFATE 300MG/5ML UDC PO SCH ×3 (08:04→17:17)
[2020-11-02] MEDS: MEGESTROL ACETATE 400 MG/10 ML UDC PO SCH (08:04)
[2020-11-02] MEDS: DUTASTERIDE 0.5MG CAPSULE PO SCH (08:04)
[2020-11-02] MEDS: TAMSULOSIN HCL 0.4MG SR CAPSULE PO SCH ×3 (08:06→21:18)
[2020-11-02] MEDS: METOPROLOL TARTRATE 50MG TABLET PO SCH ×3 (08:06→21:19)
[2020-11-02] MEDS ORDERED: POTASSIUM PHOS,M-BASIC-D-BASIC 15 MMOL in DEXT 5% WATER 245 ML IV ONE (09:00)
[2020-11-02] MEDS: BLOOD SUGAR DIAGNOSTIC STRIP TEST SCH (09:00)
[2020-11-02 10:39] LABS: BASOPHILS % 0.2 % (0.0-2.0); EOSINOPHILS % 1.5 % (0.0-5.0); HEMATOCRIT. 34.8 % (42.0-52.0); HEMOGLOBIN. 11.4 g/dL (14.0-18.0); LYMPHOCYTES % 25.3 % (20.0-50.0); MEAN CORPUSCULAR HEMOGLOBIN 27.4 pg (28.0-32.0); MEAN CORPUSCULAR VOLUME 83.8 fL (80.0-94.0); MEAN PLATELET VOLUME 7.5 fl (7.4-10.4); MONOCYTES % 9.2 % (2.0-8.0); NEUTROPHILS % 63.8 % (40.0-76.0); PLATELET 277 x1000/uL (130-400); RED BLOOD CELL COUNT 4.16 mill/uL (4.7-6.1); RED CELL DISTRIBUTION WIDTH 14.7 % (11.6-14.6)
[2020-11-02] MEDS: MEROPENEM 1,000 MG in SODIUM CHLORIDE 0.9% 100 ML IV SCH ×2 (11:02→18:02)
[2020-11-02 11:30] LABS: CHLORIDE 106 mEq/L (98-107)
[2020-11-02 11:37] LABS: PHOSPHORUS 3.2 mg/dL (2.5-4.9)
[2020-11-02 12:00] VITALS: BP 116/63
[2020-11-02] MEDS: ENOXAPARIN 40MG/0.4ML SYR SUBCUT SCH (14:15)
[2020-11-02 16:00] VITALS: BP 111/71
[2020-11-02 20:00] VITALS: BP 134/72
[2020-11-03] VITALS: BP 127/74
[2020-11-03 04:00] VITALS: BP 100/78
[2020-11-03] MEDS: MEROPENEM 1,000 MG in SODIUM CHLORIDE 0.9% 100 ML IV SCH ×3 (04:00→18:50)
[2020-11-03] MEDS: METOCLOPRAMIDE HCL 10MG/2ML VIAL IV SCH ×4 (05:11→17:13)
[2020-11-03 06:53] LABS: CHLORIDE 109 mEq/L (98-107)
[2020-11-03 06:54] LABS: BASOPHILS % 0.5 % (0.0-2.0); EOSINOPHILS % 2.3 % (0.0-5.0); HEMATOCRIT. 32.3 % (42.0-52.0); HEMOGLOBIN. 10.6 g/dL (14.0-18.0); LYMPHOCYTES % 30.9 % (20.0-50.0); MEAN CORPUSCULAR HEMOGLOBIN 27.3 pg (28.0-32.0); MEAN CORPUSCULAR VOLUME 82.8 fL (80.0-94.0); MEAN PLATELET VOLUME 7.4 fl (7.4-10.4); MONOCYTES % 10.1 % (2.0-8.0); NEUTROPHILS % 56.2 % (40.0-76.0); PLATELET 291 x1000/uL (130-400); RED CELL DISTRIBUTION WIDTH 14.9 % (11.6-14.6)
[2020-11-03 06:59] LABS: PHOSPHORUS 2.6 mg/dL (2.5-4.9)
[2020-11-03 08:00] VITALS: BP 138/72
[2020-11-03] MEDS: DUTASTERIDE 0.5MG CAPSULE PO SCH (09:09)
[2020-11-03] MEDS: TAMSULOSIN HCL 0.4MG SR CAPSULE PO SCH ×3 (09:09→21:00)
[2020-11-03] MEDS: METOPROLOL TARTRATE 50MG TABLET PO SCH ×3 (09:09→21:00)
[2020-11-03] MEDS: MEGESTROL ACETATE 400 MG/10 ML UDC PO SCH (09:10)
[2020-11-03] MEDS: FERROUS SULFATE 300MG/5ML UDC PO SCH ×3 (09:10→17:12)
[2020-11-03] MEDS: BLOOD SUGAR DIAGNOSTIC STRIP TEST SCH (09:20)
[2020-11-03] MEDS: ENOXAPARIN 40MG/0.4ML SYR SUBCUT SCH (17:13)
[2020-11-03 20:00] VITALS: BP 105/57
[2020-11-03] MEDS: FAT EMULSIONS 500 ML IV SCH (20:45)
[2020-11-03] MEDS: TOTAL PARENTERAL NUTRITION 1,700 ML IV SCH (20:47)
[2020-11-04] VITALS: BP 119/68
[2020-11-04] MEDS: MEROPENEM 1,000 MG in SODIUM CHLORIDE 0.9% 100 ML IV SCH ×3 (03:02→20:20)
[2020-11-04] MEDS: METOCLOPRAMIDE HCL 10MG/2ML VIAL IV SCH ×2 (05:44)
[2020-11-04 07:26] LABS: HEMATOCRIT. 34.4 % (42.0-52.0); HEMOGLOBIN. 11.3 g/dL (14.0-18.0); MEAN CORPUSCULAR HEMOGLOBIN 27.7 pg (28.0-32.0); MEAN CORPUSCULAR VOLUME 84.7 fL (80.0-94.0); MEAN PLATELET VOLUME 7.9 fl (7.4-10.4); PLATELET 317 x1000/uL (130-400); RED BLOOD CELL COUNT 4.07 mill/uL (4.7-6.1); RED CELL DISTRIBUTION WIDTH 15.2 % (11.6-14.6)
[2020-11-04] MEDS: FERROUS SULFATE 300MG/5ML UDC PO SCH ×4 (07:40→17:40)
[2020-11-04 07:51] LABS: CHLORIDE 108 mEq/L (98-107)
[2020-11-04 08:00] VITALS: BP 125/68
[2020-11-04 08:33] LABS: PHOSPHORUS 2.4 mg/dL (2.5-4.9)
[2020-11-04] MEDS: DUTASTERIDE 0.5MG CAPSULE PO SCH ×2 (08:54→09:00)
[2020-11-04] MEDS: METOPROLOL TARTRATE 50MG TABLET PO SCH ×3 (08:54→20:20)
[2020-11-04] MEDS: MEGESTROL ACETATE 400 MG/10 ML UDC PO SCH ×2 (08:54→08:59)
[2020-11-04] MEDS: TAMSULOSIN HCL 0.4MG SR CAPSULE PO SCH ×3 (08:54→20:20)
[2020-11-04] MEDS: BLOOD SUGAR DIAGNOSTIC STRIP TEST SCH (09:00)
[2020-11-04 10:28] LABS: PLATELET ESTIMATE NORMAL
[2020-11-04] MEDS: ENOXAPARIN 40MG/0.4ML SYR SUBCUT SCH ×2 (15:00→16:41)
[2020-11-04 16:00] VITALS: BP 131/72
[2020-11-04 20:00] VITALS: BP 145/81
[2020-11-04] MEDS: TOTAL PARENTERAL NUTRITION 1,700 ML IV SCH (20:45)
[2020-11-05] VITALS: BP 145/77
[2020-11-05] MEDS: MEROPENEM 1,000 MG in SODIUM CHLORIDE 0.9% 100 ML IV SCH ×3 (03:26→20:05)
[2020-11-05 04:00] VITALS: BP 135/76
[2020-11-05] MEDS: FERROUS SULFATE 300MG/5ML UDC PO SCH ×3 (08:33→18:01)
[2020-11-05] MEDS: TAMSULOSIN HCL 0.4MG SR CAPSULE PO SCH ×2 (08:34→20:24)
[2020-11-05] MEDS: DUTASTERIDE 0.5MG CAPSULE PO SCH (08:34)
[2020-11-05] MEDS: MEGESTROL ACETATE 400 MG/10 ML UDC PO SCH (08:34)
[2020-11-05] MEDS: METOPROLOL TARTRATE 50MG TABLET PO SCH ×2 (08:34→20:25)
[2020-11-05] MEDS: BLOOD SUGAR DIAGNOSTIC STRIP TEST SCH (09:08)
[2020-11-05] MEDS: ENOXAPARIN 40MG/0.4ML SYR SUBCUT SCH (16:05)
[2020-11-05 20:00] VITALS: BP 133/76
[2020-11-05] MEDS: PANTOPRAZOLE SODIUM 40 MG/VIAL IV SCH (20:22)
[2020-11-05] MEDS: TOTAL PARENTERAL NUTRITION 1,700 ML IV SCH (20:32)
[2020-11-06] VITALS: BP 132/77
[2020-11-06] MEDS: MEROPENEM 1,000 MG in SODIUM CHLORIDE 0.9% 100 ML IV SCH ×3 (02:42→19:09)
[2020-11-06] MEDS: MEGESTROL ACETATE 400 MG/10 ML UDC PO SCH (09:14)
[2020-11-06] MEDS: FERROUS SULFATE 300MG/5ML UDC PO SCH ×2 (09:14→11:38)
[2020-11-06] MEDS: PANTOPRAZOLE SODIUM 40 MG/VIAL IV SCH ×2 (09:15→22:51)
[2020-11-06] MEDS: METOPROLOL TARTRATE 50MG TABLET PO SCH ×2 (09:15→22:51)
[2020-11-06] MEDS: DUTASTERIDE 0.5MG CAPSULE PO SCH (09:15)
[2020-11-06] MEDS: BLOOD SUGAR DIAGNOSTIC STRIP TEST SCH (09:16)
[2020-11-06] MEDS: TAMSULOSIN HCL 0.4MG SR CAPSULE PO SCH ×2 (10:23→22:51)
[2020-11-06 12:00] VITALS: BP 130/80
[2020-11-06 16:00] VITALS: BP 134/88
[2020-11-06] MEDS: ENOXAPARIN 40MG/0.4ML SYR SUBCUT SCH (16:20)
[2020-11-06 20:00] VITALS: BP 118/67
[2020-11-06] MEDS: TOTAL PARENTERAL NUTRITION 1,700 ML IV SCH (22:53)
[2020-11-07] VITALS: BP 123/65
[2020-11-07] MEDS: MEROPENEM 1,000 MG in SODIUM CHLORIDE 0.9% 100 ML IV SCH (02:14)
[2020-11-07 04:00] VITALS: BP 121/65
[2020-11-07 07:40] LABS: BASOPHILS % 0.4 % (0.0-2.0); HEMATOCRIT. 35.7 % (42.0-52.0); HEMOGLOBIN. 11.3 g/dL (14.0-18.0); LYMPHOCYTES % 30.6 % (20.0-50.0); MEAN CORPUSCULAR HEMOGLOBIN 27.3 pg (28.0-32.0); MEAN CORPUSCULAR VOLUME 86.4 fL (80.0-94.0); MEAN PLATELET VOLUME 8.2 fl (7.4-10.4); MONOCYTES % 8.7 % (2.0-8.0); NEUTROPHILS % 58.3 % (40.0-76.0); PLATELET 287 x1000/uL (130-400); RED BLOOD CELL COUNT 4.13 mill/uL (4.7-6.1)
[2020-11-07 07:42] LABS: CHLORIDE 109 mEq/L (98-107)
[2020-11-07 08:00] VITALS: BP 125/64
[2020-11-07 08:02] LABS: INR 1.1; PARTIAL THROMBOPLASTIN TIME 31.3 sec (23.4-31.0); PROTHROMBIN TIME 11.9 sec (9.6-11.0)
[2020-11-07] MEDS: METOPROLOL TARTRATE 50MG TABLET PO SCH ×2 (09:00→21:03)
[2020-11-07] MEDS: MEGESTROL ACETATE 400 MG/10 ML UDC PO SCH (09:00)
[2020-11-07] MEDS: DUTASTERIDE 0.5MG CAPSULE PO SCH (09:00)
[2020-11-07] MEDS: TAMSULOSIN HCL 0.4MG SR CAPSULE PO SCH ×2 (09:00→21:03)
[2020-11-07] MEDS: BLOOD SUGAR DIAGNOSTIC STRIP TEST SCH (09:00)
[2020-11-07] MEDS: PANTOPRAZOLE SODIUM 40 MG/VIAL IV SCH ×2 (10:22→21:04)
[2020-11-07] MEDS ORDERED: CEFAZOLIN 1000MG PREMIX 50 ML IV ONE (12:08)
[2020-11-07] MEDS ORDERED: MIDAZOLAM HCL 5 MG/5 ML VIAL ONE (12:17)
[2020-11-07] MEDS ORDERED: FENTANYL CITRATE/PF 50MCG/ML 2ML VIAL ONE (12:18)
[2020-11-07] MEDS ORDERED: BISACODYL 10MG SUPP PR SCH (13:15)
[2020-11-07] MEDS: ENOXAPARIN 40MG/0.4ML SYR SUBCUT SCH (14:10)
[2020-11-07 20:00] VITALS: BP 146/65
[2020-11-07] MEDS: BISACODYL 5MG TABLET PO PRN (21:03)
[2020-11-07] MEDS: SIMETHICONE 80MG TABLET CHEW PO SCH (21:03)
[2020-11-07] MEDS: FAT EMULSIONS 500 ML IV SCH (21:04)
[2020-11-07] MEDS: TOTAL PARENTERAL NUTRITION 1,700 ML IV SCH (21:16)
[2020-11-08] VITALS: BP 113/65
[2020-11-08 04:00] VITALS: BP_SYST 124; BP_SYST 146; BP_DIAS 52; BP_DIAS 68
[2020-11-08 08:00] VITALS: BP 131/72
[2020-11-08] MEDS: BLOOD SUGAR DIAGNOSTIC STRIP TEST SCH (09:00)
[2020-11-08] MEDS: TAMSULOSIN HCL 0.4MG SR CAPSULE PO SCH ×2 (10:24→21:30)
[2020-11-08] MEDS: PANTOPRAZOLE SODIUM 40 MG/VIAL IV SCH ×2 (10:24→21:29)
[2020-11-08] MEDS: BISACODYL 10MG SUPP PR SCH (10:25)
[2020-11-08] MEDS: METOPROLOL TARTRATE 50MG TABLET PO SCH ×2 (10:25→21:31)
[2020-11-08] MEDS: MEGESTROL ACETATE 400 MG/10 ML UDC PO SCH (10:25)
[2020-11-08] MEDS: DUTASTERIDE 0.5MG CAPSULE PO SCH (10:25)
[2020-11-08] MEDS: SIMETHICONE 80MG TABLET CHEW PO SCH ×2 (10:25→21:29)
[2020-11-08 12:00] VITALS: BP 140/72
[2020-11-08] MEDS: BISACODYL 5MG TABLET PO PRN (13:35)
[2020-11-08] MEDS: METOCLOPRAMIDE HCL 10MG/2ML VIAL IV SCH ×2 (13:35→18:08)
[2020-11-08] MEDS: ENOXAPARIN 40MG/0.4ML SYR SUBCUT SCH (15:12)
[2020-11-08 16:00] VITALS: BP 153/82
[2020-11-08 20:00] VITALS: BP 139/74
[2020-11-08] MEDS: TOTAL PARENTERAL NUTRITION 1,700 ML IV SCH (21:32)
[2020-11-09] VITALS: BP 138/77
[2020-11-09] MEDS: METOCLOPRAMIDE HCL 10MG/2ML VIAL IV SCH ×4 (01:15→18:19)
[2020-11-09 04:00] VITALS: BP 127/60
[2020-11-09] MEDS: TAMSULOSIN HCL 0.4MG SR CAPSULE PO SCH ×2 (09:35→21:00)
[2020-11-09] MEDS: SIMETHICONE 80MG TABLET CHEW PO SCH ×2 (09:35→21:00)
[2020-11-09] MEDS: MEGESTROL ACETATE 400 MG/10 ML UDC PO SCH (09:35)
[2020-11-09] MEDS: DUTASTERIDE 0.5MG CAPSULE PO SCH (09:35)
[2020-11-09] MEDS: BISACODYL 10MG SUPP PR SCH (09:36)
[2020-11-09] MEDS: PANTOPRAZOLE SODIUM 40 MG/VIAL IV SCH ×2 (09:36→21:00)
[2020-11-09] MEDS: METOPROLOL TARTRATE 50MG TABLET PO SCH ×2 (09:36→21:00)
[2020-11-09] MEDS: BLOOD SUGAR DIAGNOSTIC STRIP TEST SCH (09:57)
[2020-11-09 11:54] VITALS: BP 130/63
[2020-11-09] MEDS: ENOXAPARIN 40MG/0.4ML SYR SUBCUT SCH (15:30)
[2020-11-09 15:56] VITALS: BP 119/64
[2020-11-09 20:00] VITALS: BP 146/81
[2020-11-09] MEDS: TOTAL PARENTERAL NUTRITION 1,700 ML IV SCH (21:03)
[2020-11-10] VITALS: BP 126/77
[2020-11-10] MEDS: METOCLOPRAMIDE HCL 10MG/2ML VIAL IV SCH ×5 (00:05→23:30)
[2020-11-10 04:00] VITALS: BP 128/77
[2020-11-10 08:56] VITALS: BP 119/64
[2020-11-10] MEDS: MEGESTROL ACETATE 400 MG/10 ML UDC PO SCH (09:06)
[2020-11-10] MEDS: PANTOPRAZOLE SODIUM 40 MG/VIAL IV SCH ×2 (09:06→23:07)
[2020-11-10] MEDS: METOPROLOL TARTRATE 50MG TABLET PO SCH ×2 (09:08→21:00)
[2020-11-10] MEDS: SIMETHICONE 80MG TABLET CHEW PO SCH ×2 (09:08→21:00)
[2020-11-10] MEDS: DUTASTERIDE 0.5MG CAPSULE PO SCH (09:08)
[2020-11-10] MEDS: BLOOD SUGAR DIAGNOSTIC STRIP TEST SCH (09:09)
[2020-11-10] MEDS: TAMSULOSIN HCL 0.4MG SR CAPSULE PO SCH ×2 (09:09→21:00)
[2020-11-10] MEDS: BISACODYL 10MG SUPP PR SCH (09:15)
[2020-11-10 11:43] VITALS: BP 123/60
[2020-11-10 15:54] VITALS: BP 135/73
[2020-11-10] MEDS: ENOXAPARIN 40MG/0.4ML SYR SUBCUT SCH (17:12)
[2020-11-10 20:00] VITALS: BP 120/74
[2020-11-10] MEDS: FAT EMULSIONS 500 ML IV SCH (23:07)
[2020-11-10] MEDS: TOTAL PARENTERAL NUTRITION 1,700 ML IV SCH (23:09)
[2020-11-11] VITALS: BP 135/82
[2020-11-11 04:00] VITALS: BP 114/72
[2020-11-11] MEDS: METOCLOPRAMIDE HCL 10MG/2ML VIAL IV SCH ×3 (05:02→17:09)
[2020-11-11 08:00] VITALS: BP 141/83
[2020-11-11] MEDS: BISACODYL 10MG SUPP PR SCH (09:12)
[2020-11-11] MEDS: TAMSULOSIN HCL 0.4MG SR CAPSULE PO SCH ×3 (09:13→21:30)
[2020-11-11] MEDS: MEGESTROL ACETATE 400 MG/10 ML UDC PO SCH (09:13)
[2020-11-11] MEDS: SIMETHICONE 80MG TABLET CHEW PO SCH ×3 (09:14→21:30)
[2020-11-11] MEDS: METOPROLOL TARTRATE 50MG TABLET PO SCH ×3 (09:14→21:30)
[2020-11-11] MEDS: PANTOPRAZOLE SODIUM 40 MG/VIAL IV SCH ×2 (09:14→21:30)
[2020-11-11] MEDS: DUTASTERIDE 0.5MG CAPSULE PO SCH (09:14)
[2020-11-11] MEDS: BLOOD SUGAR DIAGNOSTIC STRIP TEST SCH (09:15)
[2020-11-11 12:00] VITALS: BP 105/69
[2020-11-11] MEDS: ENOXAPARIN 40MG/0.4ML SYR SUBCUT SCH (14:22)
[2020-11-11 16:00] VITALS: BP 112/85
[2020-11-11 20:00] VITALS: BP 127/80
[2020-11-11] MEDS: TOTAL PARENTERAL NUTRITION 1,700 ML IV SCH (21:31)
[2020-11-12] VITALS (7 sets, daily range): BP systolic 127–142; BP diastolic 70–95
[2020-11-12] MEDS: METOCLOPRAMIDE HCL 10MG/2ML VIAL IV SCH ×5 (00:19→23:32)
[2020-11-12] MEDS: BISACODYL 10MG SUPP PR SCH (08:31)
[2020-11-12] MEDS: SIMETHICONE 80MG TABLET CHEW PO SCH ×2 (08:31→20:59)
[2020-11-12] MEDS: DUTASTERIDE 0.5MG CAPSULE PO SCH (08:31)
[2020-11-12] MEDS: TAMSULOSIN HCL 0.4MG SR CAPSULE PO SCH ×2 (08:31→21:00)
[2020-11-12] MEDS: PANTOPRAZOLE SODIUM 40 MG/VIAL IV SCH ×2 (08:32→20:59)
[2020-11-12] MEDS: MEGESTROL ACETATE 400 MG/10 ML UDC PO SCH (08:32)
[2020-11-12] MEDS: BLOOD SUGAR DIAGNOSTIC STRIP TEST SCH (08:32)
[2020-11-12] MEDS: METOPROLOL TARTRATE 50MG TABLET PO SCH ×2 (08:32→20:59)
[2020-11-12] MEDS ORDERED: *PATIENT'S OWN MEDICATION STORAGE XX SCH (15:45)
[2020-11-12] MEDS: ENOXAPARIN 40MG/0.4ML SYR SUBCUT SCH (17:13)
[2020-11-12] MEDS: TOTAL PARENTERAL NUTRITION 1,700 ML IV SCH (21:20)
[2020-11-13] VITALS (10 sets, daily range): BP systolic 113–140; BP diastolic 52–83
[2020-11-13] MEDS: METOCLOPRAMIDE HCL 10MG/2ML VIAL IV SCH ×3 (05:36→17:47)
[2020-11-13] MEDS: BISACODYL 10MG SUPP PR SCH (09:00)
[2020-11-13] MEDS ORDERED: LIDOCAINE HCL 1% 20ML VIAL (Pyxis) INJ ONE (09:04)
[2020-11-13] MEDS: TAMSULOSIN HCL 0.4MG SR CAPSULE PO SCH ×2 (10:11→21:10)
[2020-11-13] MEDS: SIMETHICONE 80MG TABLET CHEW PO SCH ×2 (10:12→21:10)
[2020-11-13] MEDS: MEGESTROL ACETATE 400 MG/10 ML UDC PO SCH (10:12)
[2020-11-13] MEDS: METOPROLOL TARTRATE 50MG TABLET PO SCH ×2 (10:12→21:10)
[2020-11-13] MEDS: PANTOPRAZOLE SODIUM 40 MG/VIAL IV SCH ×2 (10:13→21:09)
[2020-11-13] MEDS: BISACODYL 5MG TABLET PO PRN (10:13)
[2020-11-13] MEDS: DUTASTERIDE 0.5MG CAPSULE PO SCH (12:11)
[2020-11-13] MEDS: ENOXAPARIN 40MG/0.4ML SYR SUBCUT SCH (15:50)
[2020-11-13] MEDS: TOTAL PARENTERAL NUTRITION 1,700 ML IV SCH (21:18)
[2020-11-14] VITALS (7 sets, daily range): BP systolic 119–137; BP diastolic 71–100
[2020-11-14] MEDS: METOCLOPRAMIDE HCL 10MG/2ML VIAL IV SCH ×4 (01:02→18:03)
[2020-11-14 06:41] LABS: BASOPHILS % 0.3 % (0.0-2.0); EOSINOPHILS % 1.8 % (0.0-5.0); HEMATOCRIT. 37.9 % (42.0-52.0); HEMOGLOBIN. 12.3 g/dL (14.0-18.0); LYMPHOCYTES % 30.2 % (20.0-50.0); MEAN CORPUSCULAR HEMOGLOBIN 27.7 pg (28.0-32.0); MEAN CORPUSCULAR VOLUME 85.1 fL (80.0-94.0); MEAN PLATELET VOLUME 9.8 fl (7.4-10.4); MONOCYTES % 6.8 % (2.0-8.0); NEUTROPHILS % 60.9 % (40.0-76.0); PLATELET 228 x1000/uL (130-400); RED BLOOD CELL COUNT 4.46 mill/uL (4.7-6.1); RED CELL DISTRIBUTION WIDTH 15.7 % (11.6-14.6)
[2020-11-14 06:49] LABS: CHLORIDE 108 mEq/L (98-107)
[2020-11-14 07:07] LABS: PHOSPHORUS 3.5 mg/dL (2.5-4.9)
[2020-11-14] MEDS: SIMETHICONE 80MG TABLET CHEW PO SCH ×2 (08:29→21:19)
[2020-11-14] MEDS: PANTOPRAZOLE SODIUM 40 MG/VIAL IV SCH ×2 (08:29→21:18)
[2020-11-14] MEDS: DUTASTERIDE 0.5MG CAPSULE PO SCH (08:30)
[2020-11-14] MEDS: TAMSULOSIN HCL 0.4MG SR CAPSULE PO SCH ×2 (08:31→21:19)
[2020-11-14] MEDS: BISACODYL 10MG SUPP PR SCH (08:31)
[2020-11-14] MEDS: METOPROLOL TARTRATE 50MG TABLET PO SCH ×2 (08:31→21:19)
[2020-11-14] MEDS: MEGESTROL ACETATE 400 MG/10 ML UDC PO SCH (08:32)
[2020-11-14] MEDS: ENOXAPARIN 40MG/0.4ML SYR SUBCUT SCH (15:16)
[2020-11-14] MEDS: FAT EMULSIONS 500 ML IV SCH (21:18)
[2020-11-14] MEDS: TOTAL PARENTERAL NUTRITION 1,700 ML IV SCH (21:23)
[2020-11-15] VITALS (11 sets, daily range): BP systolic 117–149; BP diastolic 65–86
[2020-11-15] MEDS: METOCLOPRAMIDE HCL 10MG/2ML VIAL IV SCH ×4 (00:24→18:06)
[2020-11-15] MEDS: BISACODYL 10MG SUPP PR SCH (09:00)
[2020-11-15] MEDS: MEGESTROL ACETATE 400 MG/10 ML UDC PO SCH (10:33)
[2020-11-15] MEDS: METOPROLOL TARTRATE 50MG TABLET PO SCH ×2 (10:34→21:44)
[2020-11-15] MEDS: DUTASTERIDE 0.5MG CAPSULE PO SCH (10:35)
[2020-11-15] MEDS: PANTOPRAZOLE SODIUM 40 MG/VIAL IV SCH ×2 (10:35→21:43)
[2020-11-15] MEDS: SIMETHICONE 80MG TABLET CHEW PO SCH ×2 (10:36→21:44)
[2020-11-15] MEDS: TAMSULOSIN HCL 0.4MG SR CAPSULE PO SCH ×2 (10:36→21:44)
[2020-11-15] MEDS: ENOXAPARIN 40MG/0.4ML SYR SUBCUT SCH (15:04)
[2020-11-15] MEDS: TOTAL PARENTERAL NUTRITION 1,700 ML IV SCH (21:43)
[2020-11-16] VITALS (12 sets, daily range): BP systolic 127–150; BP diastolic 70–97
[2020-11-16] MEDS: METOCLOPRAMIDE HCL 10MG/2ML VIAL IV SCH ×5 (00:36→23:59)
[2020-11-16] MEDS: TAMSULOSIN HCL 0.4MG SR CAPSULE PO SCH ×2 (08:38→20:52)
[2020-11-16] MEDS: DUTASTERIDE 0.5MG CAPSULE PO SCH (08:39)
[2020-11-16] MEDS: PANTOPRAZOLE SODIUM 40 MG/VIAL IV SCH ×2 (08:39→20:51)
[2020-11-16] MEDS: SIMETHICONE 80MG TABLET CHEW PO SCH ×2 (08:39→20:51)
[2020-11-16] MEDS: MEGESTROL ACETATE 400 MG/10 ML UDC PO SCH (08:39)
[2020-11-16] MEDS: METOPROLOL TARTRATE 50MG TABLET PO SCH ×2 (08:39→20:52)
[2020-11-16] MEDS: BISACODYL 10MG SUPP PR SCH (09:00)
[2020-11-16] MEDS: ENOXAPARIN 40MG/0.4ML SYR SUBCUT SCH (14:24)
[2020-11-16] MEDS: TOTAL PARENTERAL NUTRITION 1,700 ML IV SCH (23:24)
[2020-11-17] VITALS (10 sets, daily range): BP systolic 122–145; BP diastolic 77–98
[2020-11-17] MEDS: METOCLOPRAMIDE HCL 10MG/2ML VIAL IV SCH ×3 (05:31→19:00)
[2020-11-17] MEDS: DUTASTERIDE 0.5MG CAPSULE PO SCH (08:46)
[2020-11-17] MEDS: MEGESTROL ACETATE 400 MG/10 ML UDC PO SCH (08:46)
[2020-11-17] MEDS: SIMETHICONE 80MG TABLET CHEW PO SCH ×2 (08:46→20:28)
[2020-11-17] MEDS: PANTOPRAZOLE SODIUM 40 MG/VIAL IV SCH ×2 (08:46→20:30)
[2020-11-17] MEDS: BISACODYL 10MG SUPP PR SCH (08:47)
[2020-11-17] MEDS: METOPROLOL TARTRATE 50MG TABLET PO SCH ×2 (08:47→20:29)
[2020-11-17] MEDS: TAMSULOSIN HCL 0.4MG SR CAPSULE PO SCH ×2 (08:47→20:30)
[2020-11-17 14:38] LABS: CLARITY URINE TURBID (CLEAR); COLOR URINE YELLOW (YELLOW); KETONES URINE NEGATIVE (NEGATIVE); LEUKOCYTE ESTERASE URINE 3+ (NEGATIVE); NITRITE URINE NEGATIVE (NEGATIVE); OCCULT BLOOD URINE TRACE (NEGATIVE); PH URINE 8.5 (4.5-8.0); PROTEIN URINE TRACE (NEGATIVE); SPECIFIC GRAVITY URINE 1.019 (1.005-1.030)
[2020-11-17] MEDS: ENOXAPARIN 40MG/0.4ML SYR SUBCUT SCH (15:26)
[2020-11-17] MEDS: TOTAL PARENTERAL NUTRITION 1,700 ML IV SCH (20:31)
[2020-11-18] VITALS (12 sets, daily range): BP systolic 119–146; BP diastolic 64–96
[2020-11-18] MEDS: METOCLOPRAMIDE HCL 10MG/2ML VIAL IV SCH ×4 (00:23→17:29)
[2020-11-18] MEDS: FAT EMULSIONS 500 ML IV SCH (04:44)
[2020-11-18] MEDS: BISACODYL 10MG SUPP PR SCH (09:00)
[2020-11-18] MEDS: SIMETHICONE 80MG TABLET CHEW PO SCH ×2 (09:15→21:34)
[2020-11-18] MEDS: MEGESTROL ACETATE 400 MG/10 ML UDC PO SCH (09:15)
[2020-11-18] MEDS: TAMSULOSIN HCL 0.4MG SR CAPSULE PO SCH ×2 (09:15→21:33)
[2020-11-18] MEDS: DUTASTERIDE 0.5MG CAPSULE PO SCH (09:15)
[2020-11-18] MEDS: PANTOPRAZOLE SODIUM 40 MG/VIAL IV SCH ×2 (09:16→21:33)
[2020-11-18] MEDS: METOPROLOL TARTRATE 50MG TABLET PO SCH ×2 (09:16→21:34)
[2020-11-18] MEDS: ENOXAPARIN 40MG/0.4ML SYR SUBCUT SCH (15:03)
[2020-11-18] MEDS: TOTAL PARENTERAL NUTRITION 1,700 ML IV SCH (21:32)
[2020-11-19] VITALS (12 sets, daily range): BP systolic 117–144; BP diastolic 72–84
[2020-11-19] MEDS: METOCLOPRAMIDE HCL 10MG/2ML VIAL IV SCH ×5 (00:24→23:55)
[2020-11-19] MEDS: METOPROLOL TARTRATE 50MG TABLET PO SCH ×3 (09:09→21:00)
[2020-11-19] MEDS: TAMSULOSIN HCL 0.4MG SR CAPSULE PO SCH (09:09)
[2020-11-19] MEDS: BISACODYL 5MG TABLET PO PRN (09:09)
[2020-11-19] MEDS: PANTOPRAZOLE SODIUM 40 MG/VIAL IV SCH ×2 (09:10→20:42)
[2020-11-19] MEDS: DUTASTERIDE 0.5MG CAPSULE PO SCH (09:10)
[2020-11-19] MEDS: SIMETHICONE 80MG TABLET CHEW PO SCH ×3 (09:12→21:00)
[2020-11-19] MEDS: BISACODYL 10MG SUPP PR SCH (09:13)
[2020-11-19] MEDS: MEGESTROL ACETATE 400 MG/10 ML UDC PO SCH (09:28)
[2020-11-19] MEDS: ENOXAPARIN 40MG/0.4ML SYR SUBCUT SCH (17:13)
[2020-11-19] MEDS: TOTAL PARENTERAL NUTRITION 1,680 ML IV SCH (20:41)
[2020-11-19] MEDS ORDERED: TOTAL PARENTERAL NUTRITION 1,680 ML IV SCH (21:00)
[2020-11-20] VITALS (13 sets, daily range): BP systolic 118–143; BP diastolic 65–94
[2020-11-20] MEDS: METOCLOPRAMIDE HCL 10MG/2ML VIAL IV SCH ×3 (06:24→18:17)
[2020-11-20] MEDS: PANTOPRAZOLE SODIUM 40 MG/VIAL IV SCH ×2 (08:29→21:16)
[2020-11-20] MEDS: METOPROLOL TARTRATE 50MG TABLET PO SCH ×2 (08:31→21:15)
[2020-11-20] MEDS: MEGESTROL ACETATE 400 MG/10 ML UDC PO SCH (08:32)
[2020-11-20] MEDS: SIMETHICONE 80MG TABLET CHEW PO SCH ×2 (08:32→21:14)
[2020-11-20] MEDS: BISACODYL 10MG SUPP PR SCH (08:33)
[2020-11-20] MEDS ORDERED: LEVOFLOXACIN 500MG PREMIX 100 ML IV SCH (11:00)
[2020-11-20] MEDS ORDERED: LINEZOLID 600 MG PREMIX 300 ML IV SCH (11:00)
[2020-11-20] MEDS: ENOXAPARIN 40MG/0.4ML SYR SUBCUT SCH (15:25)
[2020-11-20 16:57] LABS: BASOPHILS % 0.4 % (0.0-2.0); EOSINOPHILS % 1.9 % (0.0-5.0); HEMATOCRIT. 34.8 % (42.0-52.0); HEMOGLOBIN. 11.7 g/dL (14.0-18.0); LYMPHOCYTES % 28.3 % (20.0-50.0); MEAN CORPUSCULAR HEMOGLOBIN 28.5 pg (28.0-32.0); MEAN PLATELET VOLUME 8.7 fl (7.4-10.4); MONOCYTES % 13.1 % (2.0-8.0); NEUTROPHILS % 56.3 % (40.0-76.0); PLATELET 174 x1000/uL (130-400); RED CELL DISTRIBUTION WIDTH 14.8 % (11.6-14.6)
[2020-11-20 17:01] LABS: CHLORIDE 112 mEq/L (98-107)
[2020-11-20 17:07] LABS: PHOSPHORUS 3.7 mg/dL (2.5-4.9)
[2020-11-20] MEDS: TOTAL PARENTERAL NUTRITION 1,680 ML IV SCH (21:14)
== END 2020-11-20 22:58 | DRG 853 ==
LOC: ER 09:50 → 7WST 13:23 → ENRESERV 13:52 → SUPCPDRO 14:01 → ENRESERV 14:23 → EDBEDREQ 14:26 → EDBEDREQTM 14:26 → 8WST 14:54 → 5EST 11-12 12:04
PROVIDERS: ADMIT Internal Medicine; ATTEND Internal Medicine
PROC: 0YU50JZ Supplement Right Inguinal Region with Synthetic Substitute, Open Approach (ICD-10-PCS; principal; 2020-09-21)
PROC: 4A00X4Z Measurement of Central Nervous Electrical Activity, External Approach (ICD-10-PCS; 2020-10-02)
PROC: 02HV33Z Insertion of Infusion Device into Superior Vena Cava, Percutaneous Approach (ICD-10-PCS; 2020-10-08)
PROC: B5181ZA Fluoroscopy of Superior Vena Cava using Low Osmolar Contrast, Guidance (ICD-10-PCS; 2020-10-08)
PROC: B548ZZA Ultrasonography of Superior Vena Cava, Guidance (ICD-10-PCS; 2020-10-08)
PROC: B5181ZA Fluoroscopy of Superior Vena Cava using Low Osmolar Contrast, Guidance (ICD-10-PCS; 2020-10-15)
PROC: B548ZZA Ultrasonography of Superior Vena Cava, Guidance (ICD-10-PCS; 2020-10-15)
PROC: 02HV33Z Insertion of Infusion Device into Superior Vena Cava, Percutaneous Approach (ICD-10-PCS; 2020-10-15)
PROC: 02HV33Z Insertion of Infusion Device into Superior Vena Cava, Percutaneous Approach (ICD-10-PCS; 2020-11-13)
PROC: B548ZZA Ultrasonography of Superior Vena Cava, Guidance (ICD-10-PCS; 2020-11-13)
DX: A41.9 Sepsis, unspecified organism (principal); J69.0 Pneumonitis due to inhalation of food and vomit; G92 Toxic encephalopathy; N17.0 Acute kidney failure with tubular necrosis; K40.30 Unilateral inguinal hernia, with obstruction, without gangrene, not specified as recurrent; C18.9 Malignant neoplasm of colon, unspecified; E46 Unspecified protein-calorie malnutrition; K56.0 Paralytic ileus; K56.609 Unspecified intestinal obstruction, unspecified as to partial versus complete obstruction; N39.0 Urinary tract infection, site not specified; I47.2 Ventricular tachycardia; E78.00 Pure hypercholesterolemia, unspecified; E78.5 Hyperlipidemia, unspecified; F03.90 Unspecified dementia, unspecified severity, without behavioral disturbance, psychotic disturbance, mood disturbance, and anxiety; I10 Essential (primary) hypertension; K76.0 Fatty (change of) liver, not elsewhere classified; D64.9 Anemia, unspecified; B96.5 Pseudomonas (aeruginosa) (mallei) (pseudomallei) as the cause of diseases classified elsewhere; D69.6 Thrombocytopenia, unspecified; E83.39 Other disorders of phosphorus metabolism; K57.30 Diverticulosis of large intestine without perforation or abscess without bleeding; Z20.822 Contact with and (suspected) exposure to COVID-19; R53.81 Other malaise; R26.89 Other abnormalities of gait and mobility; R33.9 Retention of urine, unspecified; G31.9 Degenerative disease of nervous system, unspecified; Z85.038 Personal history of other malignant neoplasm of large intestine; Z78.9 Other specified health status; Z87.440 Personal history of urinary (tract) infections; Z79.899 Other long term (current) drug therapy; Z68.28 Body mass index [BMI] 28.0-28.9, adult
CPT/HCPCS: 36415; 36573; 70551; 71045; 74018; 74177; 74250; 74270; 76937; 80048; 80053; 80061; 81003; 82140; 82465; 82550; 82553; 82607; 82728; 82746; 82962; 83036; 83540; 83550; 83605; 83735; 83880; 84100; 84439; 84443; 84478; 84481; 84484; 85025; 85027; 87077; 87186; 87426; 88305; 92523; 92610; 93005; 93306; 93970; 97110; 97116; 97162; 97164; 97166; 97168; 97530; 97535; 99285; C1725; C1769; C1781; C1893; C9113; J0690; J1100; J1170; J1650; J1956; J2020; J2060; J2185; J2250; J2270; J2370; J2405; J2543; J2704; J2710; J2765; J3010; J3420; J3490; J7040; J7050; J7060; Q9963; Q9967; U0003; A4315